=== PATIENT | male | born 1985 ===

== ENCOUNTER 2018-06-04 14:02 | Emergency (ER) | payer OTHER ==
[2018-06-04 14:13] VITALS: RESP 18
--- NOTE | 2018-06-04 15:21 | ED PDOC ---
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 Patient states approximately 5 months ago, he had a "fracture" and had a cast placed but has not followed up with a specialist. Patient states recently, he started walking on it more and has had more pain. He otherwise denies any new trauma, injury, weakness, numbness or tingling in his foot. He denies any other complaints. Past Medical History Reviewed: Historical Data, Nursing Documentation, Vital Signs Vital Signs: Last Vital Signs Temp 99.6 F 06/04/18 14:13 Pulse 95 H 06/04/18 14:13 Resp 18 06/04/18 14:13 BP 149/88 06/04/18 14:13 Pulse Ox 97 06/04/18 14:13 - Medical History PMH: No Chronic Diseases - Surgical History Surgical History: No Surg Hx - Family History Family History: States: No Known Family Hx - Home Medications Home Medications: Ambulatory Orders Medication Instructions Recorded Ibuprofen [Motrin Tab] 600 mg PO TID 5 Days #15 tab 06/04/18 - Allergies Allergies/Adverse Reactions: Allergies Allergy/AdvReac Type Severity Reaction Status Date / Time No Known Allergies Allergy Verified 06/04/18 14:16 Review of Systems ROS Statement: Except As Marked, All Systems Reviewed And Found Negative Musculoskeletal: Positive for: Foot Pain (left) Neurological: Negative for: Weakness, Numbness Physical Exam - Reviewed Nursing Documentation Reviewed: Yes Vital Signs Reviewed: Yes - Physical Exam Appears: Positive for: Non-toxic, No Acute Distress Head Exam: Positive for: ATRAUMATIC, NORMAL INSPECTION, NORMOCEPHALIC Skin: Positive for: Normal Color Cardiovascular/Chest: Positive for: Regular Rate, Rhythm Pulses-Dorsalis Pedis (L): 2+ Extremity: Positive for: Normal ROM (FROM left ankle), Tenderness (Mild tenderness over anterior ankle.), Capillary Refill (< 2 seconds; normal neurovascular sensations). Negative for: Pedal Edema, Calf Tenderness, Deformity, Swelling Neurologic/Psych: Positive for: Alert, Oriented. Negative for: Motor/Sensory Deficits - ECG O2 Sat by Pulse Oximetry: 97 (RA) Pulse Ox Interpretation: Normal - Radiology X-Ray: Interpreted by Me X-Ray Interpretation: Other (callus formation, healing old fx, no acute fx seen) Medical Decision Making Medical Decision Making: Time: 1520 Assessment: 33yo male with chronic left ankle pain s/p (?) fracture Plan: -- Motrin 600mg PO -- XR Left ankle 1641 XR FINDINGS: BONES: There is slight irregularity of the distal fibula as well as the posterior malleolus.. The possibility of underlying fracture cannot be excluded on this exam. JOINTS: Normal. No osteoarthritis. Ankle mortise maintained. Talar dome intact SOFT TISSUES: There appears to be minor soft tissue swelling over the lateral malleolus. Suspect small joint effusion as well. OTHER FINDINGS: None. IMPRESSION: Mild irregularity of the distal lateral margin of the fibula and posterior malleolus. Underlying fracture cannot be excluded on this study. Mild soft tissue swelling with small joint effusion. 1644 Consult to podiatry placed 1708 Podiatry resident at bedside with patient now. 1726 Podiatry resident spoke with attending who advised patient to follow up in his office. Patient was given surgical shoe and crutches, and is stable for discharge home. Scribe Attestation: Documented by Uzma Schaefer acting as a scribe for CLEOPATRA Valle. Provider Attestation: All medical record entries made by the Scribe were at my direction and personally dictated by me. I have reviewed the chart and agree that the record accurately reflects my personal performance of the history, physical exam, medical decision making, and the department course for this patient. I have also personally directed, reviewed, and agree with the discharge instructions and disposition. Disposition - Clinical Impression Clinical Impression: Ankle injury - Patient ED Disposition Is Patient to be Admitted: No Doctor Will See Patient In The: Office Counseled Patient/Family Regarding: Studies Performed, Diagnosis, Need For Followup, Rx Given - Disposition Referrals: Marcin Franco DPM [Staff Provider] - Disposition: Routine/Home Disposition Time: 17:31 Condition: STABLE Prescriptions: Ibuprofen [Motrin Tab] 600 mg PO TID 5 Days #15 tab Instructions: Ankle Sprain (DC) Forms: [facility] (French) Print Language: TURKISH
--- NOTE | 2018-06-04 16:46 | RAD ---
Date of service: 06/04/2018 PROCEDURE: Left Ankle Radiographs. HISTORY: Pain. COMPARISON: None available. FINDINGS: BONES: There is slight irregularity of the distal fibula as well as the posterior malleolus.. The possibility of underlying fracture cannot be excluded on this exam. JOINTS: Normal. No osteoarthritis. Ankle mortise maintained. Talar dome intact SOFT TISSUES: There appears to be minor soft tissue swelling over the lateral malleolus. Suspect small joint effusion as well. OTHER FINDINGS: None. IMPRESSION: Mild irregularity of the distal lateral margin of the fibula and posterior malleolus. Underlying fracture cannot be excluded on this study. Mild soft tissue swelling with small joint effusion.
--- NOTE | 2018-06-04 17:31 | CP.PCM.CON ---
History of Present Illness - History of Present Illness History of Present Illness: Podiatry consult note for Dr Franco, 33 y/o male with no significant PMHx presents to ER for evaluation of left ankle pain. Patient states approximately 5 months ago, he had a "fracture" and had a an air cast placed but has not followed up with a specialist as he moved from [place] to [place]. Patient states recently, he started walking on it more and has had more pain. He otherwise denies any new trauma, injury, weakn ess, numbness or tingling in his foot. He denies any other complaints. Patient denies F/N/V/SOB/CP. Review of Systems - Review of Systems All systems: reviewed and no additional remarkable complaints except Review of Systems: As per HPI Past Patient History - Past Social History Smoking Status: Never Smoked - PSYCHIATRIC Hx Substance Use: No - SURGICAL HISTORY Hx Surgeries: No - ANESTHESIA Hx Anesthesia: No Meds Home Medications: Home Medication List Medication Instructions Recorded Confirmed Type Ibuprofen [Motrin Tab] 600 mg PO TID 5 Days #15 tab 06/04/18 Rx Allergies/Adverse Reactions: Allergies Allergy/AdvReac Type Severity Reaction Status Date / Time No Known Allergies Allergy Verified 06/04/18 14:16 Physical Exam - Constitutional Appears: Well, Non-toxic, No Acute Distress - Head Exam Head Exam: ATRAUMATIC, NORMOCEPHALIC - Extremities Exam Additional comments: Left Lower Extremity Exam VASC: DP and PT 2/4, CFT less than 3 seconds X 5, no edema, no varicosities, TG WNL NEURO: epicritic and protective sensations intact DERM: no open lesions, no ecchymosis, no erythema, no clinical signs of infection ORTHO: pain with ankle range of motion, pain on palpation to the lateral anterior aspect of the ankle, no pain with any other ranges of motion MSK 5/5 - Neurological Exam Neurological exam: Alert, Oriented x3 - Psychiatric Exam Psychiatric exam: Normal Affect, Normal Mood Results - Vital Signs Recent Vital Signs: Last Vital Signs Temp 99.6 F 06/04/18 14:13 Pulse 95 H 06/04/18 14:13 Resp 18 06/04/18 14:13 BP 149/88 06/04/18 14:13 Pulse Ox 97 06/04/18 17:26 Assessment & Plan - Assessment and Plan (Free Text) Assessment: 33 y/o male patient seen and evaluated for old left fibular fracture Plan: Patient seen and evaluated Plan discussed with attending Dr. 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 Franco Thank you for the Podiatry consult - Date & Time Date: 06/05/18 Time: 14:49
[2018-06-04 17:52] VITALS: BP 138/84; PULSE 87; TEMP 98.7; O2SAT 100
== END 2018-06-04 17:51 | disposition home or self-care (01) ==
LOC: H.ER 14:02
DX: M25.572 Pain in left ankle and joints of left foot (principal)

== ENCOUNTER 2018-07-11 07:52 | Emergency (ER) | payer OTHER ==
[2018-07-11 07:58] VITALS: BMI 30.7
[2018-07-11] MEDS ORDERED: Sodium Chloride 0.9% 1,000 ML IV STA (08:18)
--- NOTE | 2018-07-11 08:21 | ED PDOC ---
HPI: Abdomen Time Seen by Provider: 07/11/18 08:10 Chief Complaint (Nursing): Abdominal Pain History Per: Patient Onset/Duration Of Symptoms: Days (2) Current Symptoms Are (Timing): Still Present Severity: Moderate Location Of Pain/Discomfort: Epigastric Quality Of Discomfort: Sharp Associated Symptoms: denies: Fever, Nausea, Vomiting, Diarrhea, Urinary Symptoms Exacerbating Factors: None Alleviating Factors: None Additional Complaint(s): Sharp epigastric pain x 2 days. Denies NVD. Denies fever. Has been taking Motrin 600 mg x 3 months for foot fx. Denies blood in stool. Past Medical History Vital Signs: Last Vital Signs Temp 98.2 F 07/11/18 07:58 Pulse 68 07/11/18 07:58 Resp 20 07/11/18 07:58 BP 138/89 07/11/18 07:58 Pulse Ox 100 07/11/18 07:58 - Medical History PMH: No Chronic Diseases - Family History Family History: States: Unknown Family Hx - Home Medications Home Medications: Ambulatory Orders Medication Instructions Recorded Ibuprofen [Motrin Tab] 600 mg PO TID 5 Days #15 tab 06/04/18 Famotidine [Pepcid] 20 mg PO Q12 #20 tab 07/11/18 - Allergies Allergies/Adverse Reactions: Allergies Allergy/AdvReac Type Severity Reaction Status Date / Time No Known Allergies Allergy Verified 07/11/18 08:07 Review of Systems ROS Statement: Except As Marked, All Systems Reviewed And Found Negative Cardiovascular: Negative for: Chest Pain Gastrointestinal: Positive for: Abdominal Pain Physical Exam - Reviewed Nursing Documentation Reviewed: Yes Vital Signs Reviewed: Yes - Physical Exam Appears: Positive for: Non-toxic, No Acute Distress Head Exam: Positive for: ATRAUMATIC, NORMAL INSPECTION, NORMOCEPHALIC Skin: Positive for: Normal Color, Warm, DRY Eye Exam: Positive for: EOMI, Normal appearance, PERRL ENT: Positive for: Normal ENT Inspection Neck: Positive for: Normal, Painless ROM Cardiovascular/Chest: Positive for: Regular Rate, Rhythm Respiratory: Positive for: CNT, Normal Breath Sounds Gastrointestinal/Abdominal: Positive for: Soft, Tenderness (Epigastric). Negative for: Guarding, Rebound Back: Positive for: Normal Inspection Extremity: Positive for: Normal ROM Neurologic/Psych: Positive for: Alert, Oriented - Laboratory Results Result Diagrams: 07/11/18 08:33 07/11/18 08:33 - ECG O2 Sat by Pulse Oximetry: 100 - Progress Re-evaluation Time: 10:23 Condition: Improved Medical Decision Making Medical Decision Making: Abd pain Chronic NSAID use gastritis, r/o PUD IVF, Pepcid Disposition - Clinical Impression Clinical Impression: Gastritis - Patient ED Disposition Is Patient to be Admitted: No Counseled Patient/Family Regarding: Studies Performed, Diagnosis, Need For Followup, Rx Given - Disposition Referrals: [facility] [Outside] Disposition: Routine/Home Disposition Time: 10:23 Condition: FAIR Additional Instructions: Para a dana el Ibuprofen Prescriptions: Famotidine [Pepcid] 20 mg PO Q12 #20 tab Instructions: Gastritis Forms: [facility] (Belizean) Print Language: KITTITIAN
[2018-07-11 08:41] LABS: BASO % 0.4 % (0.0-2.0); EOS % 0.2 % (0.0-4.0); HEMOGLOBIN 14.7 g/dL (12.0-18.0); LYMPH # 1.3 K/uL (1.0-4.3); LYMPH % 12.1 % (20.0-40.0); MEAN CELL VOLUME 88.8 fl (80.0-94.0); MEAN CORPUSCULAR HEMOGLOBIN 30.3 pg (27.0-31.0); MEAN CORPUSCULAR HGB CONC 34.1 g/dL (33.0-37.0); MEAN PLATELET VOLUME 7.8 fl (7.2-11.7); MONO # 0.4 K/uL (0.0-0.8); NEUT # 9.1 K/uL (1.8-7.0); NEUT % 83.3 % (50.0-75.0); RBC 4.84 Mil/uL (4.40-5.90); RED CELL DISTRIBUTION WIDTH 13.7 % (11.5-14.5)
[2018-07-11 09:12] LABS: ALB/GLOB RATIO 1.3 (1.0-2.1); ALBUMIN 4.2 g/dL (3.5-5.0); ALT/SGPT 58 U/L (21-72); AST/SGOT 39 U/L (17-59); BLOOD UREA NITROGEN 14 mg/dl (9-20); CALCIUM 9.7 mg/dL (8.4-10.2); GFR NON-AFRICAN AMERICAN > 60; LIPASE 58 U/L (23-300)
[2018-07-11 10:38] VITALS: BP 130/78; PULSE 71; RESP 18; TEMP 98.4; O2SAT 99
== END 2018-07-11 10:40 | disposition home or self-care (01) ==
LOC: H.ER 07:52
DX: K29.70 Gastritis, unspecified, without bleeding (principal)
CPT/HCPCS: 80053; 83690; 85025; 96361; 96374; 99284; J7030

== ENCOUNTER 2018-07-12 12:54 | Inpatient (IN) | payer MEDICAID, OTHER ==
[2018-07-12 12:54] VITALS: BMI 30.7
[2018-07-12] MEDS ORDERED: Sodium Chloride 0.9% 1,000 ML IV STA ×2 (14:27→16:49)
[2018-07-12] MEDS ORDERED: Morphine 4 MG/ML VIAL IV ONE ×2 (14:28→15:24)
[2018-07-12] MEDS ORDERED: Morphine 4 MG/ML VIAL ONE ×2 (14:36→15:40)
--- NOTE | 2018-07-12 14:39 | ED PDOC ---
HPI: Abdomen Time Seen by Provider: 07/12/18 13:48 Chief Complaint (Nursing): Abdominal Pain Chief Complaint (Provider): Abdominal pain History Per: Patient History/Exam Limitations: no limitations Onset/Duration Of Symptoms: Days Outside of [place] travel?: No Current Symptoms Are (Timing): Still Present Location Of Pain/Discomfort: RUQ, Periumbilical Quality Of Discomfort: "Pain" Additional History Per: Patient Additional Complaint(s): 33yo male, comes to ER reporting right upper quadrant abdominal pain with associated epigastric pain since last night. Patient states he was seen in this ER yesterday and did not have any imaging done, and was discharged home with pep shazia. Patient reports that he has been taking Motrin 600mg for the past 3 months due to left foot pain. He also reports a tactile fever last night, as well as nausea. otherwise, no vomiting, diarrhea, or bloody stools. No additional complaints. Past Medical History Reviewed: Historical Data, Nursing Documentation, Vital Signs Vital Signs: Last Vital Signs Temp 101.7 F H 07/12/18 13:14 Pulse 110 H 07/12/18 13:14 Resp 20 07/12/18 13:14 BP 127/90 07/12/18 13:14 Pulse Ox 97 07/12/18 13:14 - Medical History PMH: No Chronic Diseases - Surgical History Surgical History: No Surg Hx - Family History Family History: States: No Known Family Hx - Home Medications Home Medications: Ambulatory Orders Medication Instructions Recorded Famotidine [Pepcid] 20 mg PO Q12 #20 tab 07/11/18 RX: Ibuprofen [Motrin Tab] 600 mg PO TID PRN 07/12/18 - Allergies Allergies/Adverse Reactions: Allergies Allergy/AdvReac Type Severity Reaction Status Date / Time No Known Allergies Allergy Verified 07/11/18 08:07 Review of Systems ROS Statement: Except As Marked, All Systems Reviewed And Found Negative Constitutional: Positive for: Fever. Negative for: Chills Cardiovascular: Negative for: Chest Pain Gastrointestinal: Positive for: Nausea, Abdominal Pain. Negative for: Vomiting, Diarrhea Physical Exam - Reviewed Nursing Documentation Reviewed: Yes Vital Signs Reviewed: Yes - Physical Exam Appears: Positive for: Non-toxic, No Acute Distress Head Exam: Positive for: ATRAUMATIC, NORMAL INSPECTION, NORMOCEPHALIC Skin: Positive for: Normal Color Eye Exam: Positive for: Normal appearance Neck: Positive for: Supple Cardiovascular/Chest: Positive for: Regular Rate, Rhythm Respiratory: Positive for: Normal Breath Sounds Gastrointestinal/Abdominal: Positive for: Bowel Sounds, Soft, Tenderness (right upper quadrant and periumbilical tenderness; + Alonso's sign). Negative for: Mass, Distended, Guarding, Rebound Back: Positive for: Normal Inspection Extremity: Positive for: Normal ROM, Other (left foot in sherin wrap). Negative for: Pedal Edema Neurologic/Psych: Positive for: Alert, Oriented. Negative for: Motor/Sensory Deficits - Laboratory Results Result Diagrams: 07/15/18 05:40 07/15/18 05:40 - ECG O2 Sat by Pulse Oximetry: 97 (RA) Pulse Ox Interpretation: Normal Medical Decision Making Medical Decision Makinyo male with sudden onset abdominal pain, right upper quadrant tendereness rule out cholecystitis Plan: -- US Galbladder -- Labs -- Urinalysis -- Morphine 2mg IV -- Pepcid 20mg IV 1616 Labs reviewed, patient with elevated WBC level of 19. LFT and total bili elevated as well. Suspicion for cholecysititis, currently pending US results. 1637 US Abdomen FINDINGS: LIVER: Measures 18.4 cm in length. Normal echogenicity of the liver parenchyma. No mass. No intrahepatic bile duct dilatation. GALLBLADDER: Gallbladder is distended with the solitary gallstone at the neck with thickening of the gallbladder wall up to 5.4 mm. No pericholecystic fluid collection however cholecystitis is questioned sonographically and further clinical correlation is recommended. COMMON BILE DUCT: Measures 5.2 mm. No stones. No dilatation. PANCREAS: Extensive overlying bowel gas completely obscures the pancreas. RIGHT KIDNEY: Measures 10.6 cm in length. Normal echogenicity. No calculus, mass, or hydronephrosis. AORTA: Obscured by overlying bowel gas. IVC: Obscured by overlying bowel gas. OTHER FINDINGS: None. IMPRESSION: Gallbladder is mildly distended with significant mural thickening but no pericholecystic fluid collection. There is reported sonographic Alonso sign. Normal CBD caliber. Clinically correlate for likely cholecystitis. Overlying bowel gas obscures the pancreas, abdominal aorta and inferior vena cava, which are not evaluated. The remainder the examination is unremarkable. 1643 IV Zosyn ordered. Case discussed with Dr. Jasso surgery division engineer who is requesting MRCP and business services vice president to evaluate patient. Monge to be admitted under hospitalist, Dr. Riddle. pt agreeable to plan 5 pm potential source of sepsis/infection identified iv fluids nad supportive care initiated vbg ordered pending results vitals stable Scribe Attestation: Documented by Uzma Schaefer acting as a scribe for Nishant Starr MD Provider Attestation: All medical record entries made by the Scribe were at my direction and personally dictated by me. I have reviewed the chart and agree that the record accurately reflects my personal performance of the history, physical exam, medical decision making, and the department course for this patient. I have also personally directed, reviewed, and agree with the discharge instructions and disposition. Disposition - Clinical Impression Clinical Impression: Abdominal pain, Cholecystitis - Patient ED Disposition Is Patient to be Admitted: Yes - Disposition Disposition: Transfer of Care Disposition Time: 16:43 Condition: STABLE
[2018-07-12 15:01] LABS: BASO % 0.2 % (0.0-2.0); EOS % 0.1 % (0.0-4.0); HEMOGLOBIN 15.2 g/dL (12.0-18.0); LYMPH # 1.3 K/uL (1.0-4.3); LYMPH % 6.8 % (20.0-40.0); MEAN CELL VOLUME 88.2 fl (80.0-94.0); MEAN CORPUSCULAR HEMOGLOBIN 29.3 pg (27.0-31.0); MEAN CORPUSCULAR HGB CONC 33.3 g/dL (33.0-37.0); MEAN PLATELET VOLUME 7.7 fl (7.2-11.7); MONO # 1.8 K/uL (0.0-0.8); MONO % 9.2 % (0.0-10.0); NEUT # 16.2 K/uL (1.8-7.0); NEUT % 83.7 % (50.0-75.0); PLATELET COUNT 310 K/uL (130-400); RBC 5.17 Mil/uL (4.40-5.90); RED CELL DISTRIBUTION WIDTH 14.1 % (11.5-14.5); WHITE BLOOD COUNT 19.3 K/uL (4.8-10.8)
[2018-07-12 15:18] LABS: ALB/GLOB RATIO 1.2 (1.0-2.1); ALBUMIN 4.5 g/dL (3.5-5.0); ALT/SGPT 84 U/L (21-72); AST/SGOT 75 U/L (17-59); BLOOD UREA NITROGEN 9 mg/dl (9-20); CALCIUM 9.8 mg/dL (8.4-10.2); GFR NON-AFRICAN AMERICAN > 60; LIPASE 19 U/L (23-300)
[2018-07-12 16:33] LABS: URINE BACTERIA RARE (<OCC); URINE BILIRUBIN NEGATIVE (NEGATIVE); URINE BLOOD NEGATIVE (NEGATIVE); URINE CLARITY SLIGHTY-CLOUDY (Clear); URINE COLOR YELLOW (YELLOW); URINE GLUCOSE (UA) NEG (NEGATIVE); URINE LEUKOCYTE ESTERASE NEG Leu/uL (Negative); URINE PROTEIN NEGATIVE (NEGATIVE); URINE UROBILINOGEN 0.2-1.0 mg/dL (0.2-1.0)
--- NOTE | 2018-07-12 16:35 | US ---
Date of service: 07/12/2018 HISTORY: abdominal pain RUQ COMPARISON: None. TECHNIQUE: Sonographic evaluation of the right upper quadrant of the abdomen. FINDINGS: LIVER: Measures 18.4 cm in length. Normal echogenicity of the liver parenchyma. No mass. No intrahepatic bile duct dilatation. GALLBLADDER: Gallbladder is distended with the solitary gallstone at the neck with thickening of the gallbladder wall up to 5.4 mm. No pericholecystic fluid collection however cholecystitis is questioned sonographically and further clinical correlation is recommended. COMMON BILE DUCT: Measures 5.2 mm. No stones. No dilatation. PANCREAS: Extensive overlying bowel gas completely obscures the pancreas. RIGHT KIDNEY: Measures 10.6 cm in length. Normal echogenicity. No calculus, mass, or hydronephrosis. AORTA: Obscured by overlying bowel gas. IVC: Obscured by overlying bowel gas. OTHER FINDINGS: None . IMPRESSION: Gallbladder is mildly distended with significant mural thickening but no pericholecystic fluid collection. There is reported sonographic Alonso sign. Normal CBD caliber. Clinically correlate for likely cholecystitis. Overlying bowel gas obscures the pancreas, abdominal aorta and inferior vena cava, which are not evaluated. The remainder the examination is unremarkable.
[2018-07-12] MEDS ORDERED: Piperacillin/Tazobact 4.5 GM in Sodium Chloride 0.9% 100 ML IVPB STA (16:45)
[2018-07-12 17:24] LABS: VENOUS BLOOD GAS BASE EXCESS 1.7 mmol/L (0.0-2.0); VENOUS BLOOD GAS PCO2 38 mmHg (40-60); VENOUS BLOOD GAS PO2 57 mm/Hg (30-55); VENOUS BLOOD PH 7.44 (7.32-7.43)
[2018-07-12] MEDS ORDERED: Piperacillin/Tazobact 3.375 gm Inj IVPB ONE (17:29)
--- NOTE | 2018-07-12 17:29 | CP.PCM.CON ---
<Garett Conley - Last Filed: 07/12/18 19:37> History of Present Illness - History of Present Illness History of Present Illness: Surgery Consult Note- Dr. Jasso Reason for Consult: Acute Cholecystitis 33M w/ no significant pmhx presents to [facility] ED for the 2nd time in 24 hours with severe sharp stabbing RUQ abdominal pain that started yesterday. patient has never experienced pain like this in the past. Of note patient came to the hospital yesterday and was discharged home w/ pepcid with some relief. Pain got significantly worse after eating earlier today and returned. ED work up showed elevation in leukocytosis, t.bili, and liver enzymes. Subsequently surgery was consulted. Denies fevers, chills, chest pain, shortness of breath, nausea, vomiting, diarrhea, changes in urinary habits. US: shows 1cm stone in neck of GB, CBD 5mm. 12 pt ROS conducted, negative otherwise stated above PMH: Fractured left foot 6 months ago PSH: denies ALL: NKDA SocialHx: denies tobacco, etoh, recreational drug use FH: non-contributory Review of Systems - Review of Systems All systems: reviewed and no additional remarkable complaints except - Constitutional Constitutional: As Per HPI Past Patient History - Past Social History Smoking Status: Never Smoked - PSYCHIATRIC Hx Substance Use: No - SURGICAL HISTORY Hx Surgeries: No - ANESTHESIA Hx Anesthesia: No Meds Allergies/Adverse Reactions: Allergies Allergy/AdvReac Type Severity Reaction Status Date / Time No Known Allergies Allergy Verified 07/11/18 08:07 - Medications Medications: Current Medications Piperacillin Sod/Tazobactam (Sod 4.5 gm/ Sodium Chloride) 100 mls @ 100 mls/hr IVPB STAT STA; Protocol Stop: 07/12/18 17:44 Sodium Chloride (Sodium Chloride 0.9%) 1,000 mls @ 999 mls/hr IV .Q1H1M STA Stop: 07/12/18 17:49 Physical Exam - Constitutional Appears: Non-toxic, No Acute Distress - Head Exam Head Exam: ATRAUMATIC - Eye Exam Eye Exam: EOMI. absent: Scleral icterus - ENT Exam ENT Exam: Mucous Membranes Moist - Respiratory Exam Respiratory Exam: NORMAL BREATHING PATTERN. absent: Accessory Muscle Use, Respiratory Distress - Cardiovascular Exam Cardiovascular Exam: REGULAR RHYTHM. absent: Bradycardia, Tachycardia - GI/Abdominal Exam GI & Abdominal Exam: Soft, Tenderness (Tenderness to shallow palpation in RUQ. ). absent: Distended, Firm, Guarding, Hernia, Rigid - Extremities Exam Extremities exam: Negative for: calf tenderness Additional comments: LLE wrapped w/ KWASI bandage. due to fx 6mo ago - Neurological Exam Neurological exam: Alert, Oriented x3 - Psychiatric Exam Psychiatric exam: Normal Affect - Skin Skin Exam: Intact, Warm Results - Vital Signs Recent Vital Signs: Last Vital Signs Temp 99.5 F 07/12/18 16:26 Pulse 80 07/12/18 16:26 Resp 18 07/12/18 16:26 BP 124/73 07/12/18 16:26 Pulse Ox 97 07/12/18 17:14 - Labs Result Diagrams: 07/12/18 14:50 07/12/18 14:50 Labs: Laboratory Results - last 24 hr 07/12/18 07/12/18 07/12/18 14:50 14:50 16:23 WBC 19.3 H D RBC 5.17 Hgb 15.2 Hct 45.5 MCV 88.2 MCH 29.3 MCHC 33.3 RDW 14.1 Plt Count 310 MPV 7.7 Neut % (Auto) 83.7 H Lymph % (Auto) 6.8 L [place] % (Auto) 9.2 Eos % (Auto) 0.1 Baso % (Auto) 0.2 Neut # (Auto) 16.2 H Lymph # (Auto) 1.3 Major # (Auto) 1.8 H Eos # (Auto) 0.0 Baso # (Auto) 0.0 pO2 VBG pH VBG pCO2 VBG HCO3 VBG Total CO2 VBG O2 Sat (Calc) VBG Base Excess VBG Potassium Glucose Lactate FiO2 Sodium 138 Potassium 4.0 Chloride 91 L Carbon Dioxide 27 Anion Gap 24 H BUN 9 Creatinine 0.9 Est GFR ( Amer) > 60 Est GFR (Non-Af Amer) > 60 Random Glucose 125 H Calcium 9.8 Total Bilirubin 1.9 H AST 75 H D ALT 84 H D Alkaline Phosphatase 118 Total Protein 8.3 H Albumin 4.5 Globulin 3.7 Albumin/Globulin Ratio 1.2 Lipase 19 L Venous Blood Potassium Urine Color Yellow Urine Clarity Slighty-cloudy Urine pH 7.0 Ur Specific [place] 1.006 Urine Protein Negative Urine Glucose (UA) Neg Urine Ketones Negative Urine Blood Negative Urine Nitrate Negative Urine Bilirubin Negative Urine Urobilinogen 0.2-1.0 Ur Leukocyte Esterase Neg Urine RBC (Auto) 1 Urine Microscopic WBC < 1 Urine Bacteria Rare 07/12/18 16:57 WBC RBC Hgb Hct MCV MCH MCHC RDW Plt Count MPV Neut % (Auto) Lymph % (Auto) Major % (Auto) Eos % (Auto) Baso % (Auto) Neut # (Auto) Lymph # (Auto) Major # (Auto) Eos # (Auto) Baso # (Auto) pO2 57 H VBG pH 7.44 H VBG pCO2 38 L VBG HCO3 26.0 VBG Total CO2 27.0 VBG O2 Sat (Calc) 95.4 H VBG Base Excess 1.7 VBG Potassium 3.4 L Glucose 130 H Lactate 1.4 FiO2 21.0 Sodium 133.0 Potassium Chloride 103.0 Carbon Dioxide Anion Gap BUN Creatinine Est GFR ( Amer) Est GFR (Non-Af Amer) Random Glucose Calcium Total Bilirubin AST ALT Alkaline Phosphatase Total Protein Albumin Globulin Albumin/Globulin Ratio Lipase Venous Blood Potassium 3.4 L Urine Color Urine Clarity Urine pH Ur Specific [place] Urine Protein Urine Glucose (UA) Urine Ketones Urine Blood Urine Nitrate Urine Bilirubin Urine Urobilinogen Ur Leukocyte Esterase Urine RBC (Auto) Urine Microscopic WBC Urine Bacteria Assessment & Plan - Assessment and Plan (Free Text) Assessment: 33M w/ Acute Cholecystitis w/ Cholangitis US: 1cm stone in neck of GB, trace pericholecystic fluid. GBW: 5mm, CBD: 5mm Plan: - MRCP reviewed; final read pending. (concern for multiple stones in CBD) - will need GI and ERCP prior to surgery - Aggressive IVF/Abx - NPO - Anti-emetic, analgesia PRN - serial Abd exams - d/w surgical attending PGY2 <Miguel Jasso - Last Filed: 07/12/18 19:57> History of Present Illness - History of Present Illness History of Present Illness: Patient was seen and examined at the bedside. Agree with resident's note above. Meds - Medications Medications: Current Medications Lactated Ringer's (Lactated Ringer's) 1,000 mls @ 9,999 mls/hr IV .Q6M RUSTAM Stop: 07/12/18 19:56 Lactated Ringer's (Lactated Ringer's) 1,000 mls @ 125 mls/hr IV .Q8H RUSTAM Morphine Sulfate (Morphine) 2 mg IVP Q4 PRN PRN Reason: Pain, moderate (4-7) Physical Exam - ENT Exam ENT Exam: Mucous Membranes Dry - GI/Abdominal Exam Additional comments: soft, tender in the RUQ, ND, BS+, no rebound, no guarding, + Alonso's sign Results - Vital Signs Recent Vital Signs: Last Vital Signs Temp 99.0 F 07/12/18 18:10 Pulse 88 07/12/18 18:10 Resp 20 07/12/18 18:10 BP 125/73 07/12/18 18:10 Pulse Ox 100 07/12/18 17:44 - Labs Result Diagrams: 07/12/18 14:50 07/12/18 14:50 Labs: Laboratory Results - last 24 hr 07/12/18 07/12/18 07/12/18 14:50 14:50 16:23 WBC 19.3 H D RBC 5.17 Hgb 15.2 Hct 45.5 MCV 88.2 MCH 29.3 MCHC 33.3 RDW 14.1 Plt Count 310 MPV 7.7 Neut % (Auto) 83.7 H Lymph % (Auto) 6.8 L [place] % (Auto) 9.2 Eos % (Auto) 0.1 Baso % (Auto) 0.2 Neut # (Auto) 16.2 H Lymph # (Auto) 1.3 Major # (Auto) 1.8 H Eos # (Auto) 0.0 Baso # (Auto) 0.0 Neutrophils % (Manual) 86 H Lymphocytes % (Manual) 7 L Monocytes % (Manual) 7 Platelet Estimate Normal RBC Morphology Normal pO2 VBG pH VBG pCO2 VBG HCO3 VBG Total CO2 VBG O2 Sat (Calc) VBG Base Excess VBG Potassium Glucose Lactate FiO2 Sodium 138 Potassium 4.0 Chloride 91 L Carbon Dioxide 27 Anion Gap 24 H BUN 9 Creatinine 0.9 Est GFR ( Amer) > 60 Est GFR (Non-Af Amer) > 60 Random Glucose 125 H Calcium 9.8 Total Bilirubin 1.9 H AST 75 H D ALT 84 H D Alkaline Phosphatase 118 Total Protein 8.3 H Albumin 4.5 Globulin 3.7 Albumin/Globulin Ratio 1.2 Lipase 19 L Venous Blood Potassium Urine Color Yellow Urine Clarity Slighty-cloudy Urine pH 7.0 Ur Specific [place] 1.006 Urine Protein Negative Urine Glucose (UA) Neg Urine Ketones Negative Urine Blood Negative Urine Nitrate Negative Urine Bilirubin Negative Urine Urobilinogen 0.2-1.0 Ur Leukocyte Esterase Neg Urine RBC (Auto) 1 Urine Microscopic WBC < 1 Urine Bacteria Rare 07/12/18 16:57 WBC RBC Hgb Hct MCV MCH MCHC RDW Plt Count MPV Neut % (Auto) Lymph % (Auto) Major % (Auto) Eos % (Auto) Baso % (Auto) Neut # (Auto) Lymph # (Auto) Major # (Auto) Eos # (Auto) Baso # (Auto) Neutrophils % (Manual) Lymphocytes % (Manual) Monocytes % (Manual) Platelet Estimate RBC Morphology pO2 57 H VBG pH 7.44 H VBG pCO2 38 L VBG HCO3 26.0 VBG Total CO2 27.0 VBG O2 Sat (Calc) 95.4 H VBG Base Excess 1.7 VBG Potassium 3.4 L Glucose 130 H Lactate 1.4 FiO2 21.0 Sodium 133.0 Potassium Chloride 103.0 Carbon Dioxide Anion Gap BUN Creatinine Est GFR ( Amer) Est GFR (Non-Af Amer) Random Glucose Calcium Total Bilirubin AST ALT Alkaline Phosphatase Total Protein Albumin Globulin Albumin/Globulin Ratio Lipase Venous Blood Potassium 3.4 L Urine Color Urine Clarity Urine pH Ur Specific [place] Urine Protein Urine Glucose (UA) Urine Ketones Urine Blood Urine Nitrate Urine Bilirubin Urine Urobilinogen Ur Leukocyte Esterase Urine RBC (Auto) Urine Microscopic WBC Urine Bacteria - Imaging and Cardiology US - abdomen Status: Image reviewed by me, Report reviewed by me Assessment & Plan - Assessment and Plan (Free Text) Assessment: 33 y.o. male with cholecystitis and elevated LFTs Plan: - Awaiting MRCP results - Keep NPO - 1L bolus - IV fluids - Pain control - Zosyn - GI consultation - Repeat labs in am - Will follow - Patient was d/w Dr. Riddle
[2018-07-12 17:30] LABS: LYMPHOCYTE 7 % (20-50); MONOCYTE 7 % (0-10); NEUTROPHIL 86 % (42-75); TOTAL CELLS COUNTED 100
[2018-07-12 17:31] LABS: PLATELET ESTIMATE NORMAL (NORMAL)
--- NOTE | 2018-07-12 18:49 | CP.PCM.HP ---
<Kylie Casanova - Last Filed: 07/13/18 02:28> History of Present Illness - History of Present Illness History of Present Illness: 33 yo M with no significant chronic medical issues, presented to ED today with sharp, stabbing RUQ pain that started yesterday; denies experiencing pain like this before. He states pain got worse after eating earlier today. Upon evaluation, was found to have positive Alonso's sign on exam and abd US showed mildly distended gallbladder with significant mural thickening but no pericholecystic fluid collection and sonographic Alonso sign. Denies headache, blurred vision, dizziness, chest pain, shortness of breath, nausea, vomiting, diarrhea, constipation, dysuria. PMD: [place] [facility]; had 1 visit in 06/2017 Past Med Hx: fractured left foot 6 months ago but has not had follow up until this month Past Surg Hx: lipoma Social hx: denies tobacco, alcohol, drug use Family hx: non contributory, parents healthy Allergies: NKDA In ED: Vitals: T 101.7; BP 127/90, HR 110, RR 20, O2 sat 97 on room air Labs: significant for elevated WBC (19.3), elevated T bili 1.9, elevated LFT (AST 75, ALT 84) Lactate 1.4 UA negative Blood and urine cultures collected and sent Abdominal U/s: IMPRESSION: Gallbladder is mildly distended with significant mural thickening but no pericholecystic fluid collection. There is reported sonographic Alonso sign. Normal CBD caliber. Clinically correlate for likely cholecystitis. Overlying bowel gas obscures the pancreas, abdominal aorta and inferior vena cava, which are not evaluated. The remainder the examination is unremarkable. Received: Pepcid 20 mg 2L NS bolus Zosyn 4.5 mg Tylenol 650 mg Morphine for pain control Surgery consulted to rob pt - requested MRCP; as per surg resident note, there is a 1cm stone in neck of GB, CBD 5mm. Present on Admission - Present on Admission Any Indicators Present on Admission: No Review of Systems - Review of Systems All systems: reviewed and no additional remarkable complaints except Review of Systems: as per hpi Past Patient History - Past Social History Smoking Status: Never Smoked Alcohol: None Drugs: Denies - CARDIAC Hx Cardiac Disorders: No - PULMONARY Hx Respiratory Disorders: No - NEUROLOGICAL Hx Neurological Disorder: No - HEENT Hx HEENT Problems: No - RENAL Hx Chronic Kidney Disease: No - ENDOCRINE/METABOLIC Hx Endocrine Disorders: No - HEMATOLOGICAL/ONCOLOGICAL Hx Blood Disorders: No - INTEGUMENTARY Hx Dermatological Problems: No - MUSCULOSKELETAL/RHEUMATOLOGICAL Hx Musculoskeletal Disorders: No - GASTROINTESTINAL Hx Gastrointestinal Disorders: No - GENITOURINARY/GYNECOLOGICAL Hx Genitourinary Disorders: No - PSYCHIATRIC Hx Psychophysiologic Disorder: No Hx Substance Use: No - SURGICAL HISTORY Hx Surgeries: Yes Other/Comment: lipoma removal - ANESTHESIA Hx Anesthesia: No Meds Allergies/Adverse Reactions: Allergies Allergy/AdvReac Type Severity Reaction Status Date / Time No Known Allergies Allergy Verified 07/11/18 08:07 Physical Exam - Constitutional Appears: Non-toxic, No Acute Distress - Head Exam Head Exam: NORMAL INSPECTION - Eye Exam Eye Exam: Normal appearance - ENT Exam ENT Exam: Mucous Membranes Moist - Respiratory Exam Respiratory Exam: Clear to Auscultation Bilateral, NORMAL BREATHING PATTERN. absent: Respiratory Distress - Cardiovascular Exam Cardiovascular Exam: REGULAR RHYTHM, +S1, +S2 - GI/Abdominal Exam GI & Abdominal Exam: Normal Bowel Sounds, Soft, Tenderness (RUQ) - Extremities Exam Extremities exam: Positive for: normal inspection. Negative for: calf te nderness, pedal edema - Neurological Exam Neurological exam: Alert, Oriented x3 - Psychiatric Exam Psychiatric exam: Normal Affect, Normal Mood - Skin Skin Exam: Dry, Warm Results - Vital Signs Recent Vital Signs: Last Vital Signs Temp 99.0 F 07/12/18 18:10 Pulse 88 07/12/18 18:10 Resp 20 07/12/18 18:10 BP 125/73 07/12/18 18:10 Pulse Ox 100 07/12/18 17:44 - Labs Result Diagrams: 07/12/18 14:50 07/12/18 14:50 Labs: Laboratory Results - last 24 hr 07/12/18 07/12/18 07/12/18 14:50 14:50 16:23 WBC 19.3 H D RBC 5.17 Hgb 15.2 Hct 45.5 MCV 88.2 MCH 29.3 MCHC 33.3 RDW 14.1 Plt Count 310 MPV 7.7 Neut % (Auto) 83.7 H Lymph % (Auto) 6.8 L [place] % (Auto) 9.2 Eos % (Auto) 0.1 Baso % (Auto) 0.2 Neut # (Auto) 16.2 H Lymph # (Auto) 1.3 [place] # (Auto) 1.8 H Eos # (Auto) 0.0 Baso # (Auto) 0.0 Neutrophils % (Manual) 86 H Lymphocytes % (Manual) 7 L Monocytes % (Manual) 7 Platelet Estimate Normal RBC Morphology Normal pO2 VBG pH VBG pCO2 VBG HCO3 VBG Total CO2 VBG O2 Sat (Calc) VBG Base Excess VBG Potassium Glucose Lactate FiO2 Sodium 138 Potassium 4.0 Chloride 91 L Carbon Dioxide 27 Anion Gap 24 H BUN 9 Creatinine 0.9 Est GFR ( Amer) > 60 Est GFR (Non-Af Amer) > 60 Random Glucose 125 H Calcium 9.8 Total Bilirubin 1.9 H AST 75 H D ALT 84 H D Alkaline Phosphatase 118 Total Protein 8.3 H Albumin 4.5 Globulin 3.7 Albumin/Globulin Ratio 1.2 Lipase 19 L Venous Blood Potassium Urine Color Yellow Urine Clarity Slighty-cloudy Urine pH 7.0 Ur Specific [place] 1.006 Urine Protein Negative Urine Glucose (UA) Neg Urine Ketones Negative Urine Blood Negative Urine Nitrate Negative Urine Bilirubin Negative Urine Urobilinogen 0.2-1.0 Ur Leukocyte Esterase Neg Urine RBC (Auto) 1 Urine Microscopic WBC < 1 Urine Bacteria Rare 07/12/18 16:57 WBC RBC Hgb Hct MCV MCH MCHC RDW Plt Count MPV Neut % (Auto) Lymph % (Auto) [place] % (Auto) Eos % (Auto) Baso % (Auto) Neut # (Auto) Lymph # (Auto) [place] # (Auto) Eos # (Auto) Baso # (Auto) Neutrophils % (Manual) Lymphocytes % (Manual) Monocytes % (Manual) Platelet Estimate RBC Morphology pO2 57 H VBG pH 7.44 H VBG pCO2 38 L VBG HCO3 26.0 VBG Total CO2 27.0 VBG O2 Sat (Calc) 95.4 H VBG Base Excess 1.7 VBG Potassium 3.4 L Glucose 130 H Lactate 1.4 FiO2 21.0 Sodium 133.0 Potassium Chloride 103.0 Carbon Dioxide Anion Gap BUN Creatinine Est GFR ( Amer) Est GFR (Non-Af Amer) Random Glucose Calcium Total Bilirubin AST ALT Alkaline Phosphatase Total Protein Albumin Globulin Albumin/Globulin Ratio Lipase Venous Blood Potassium 3.4 L Urine Color Urine Clarity Urine pH Ur Specific [place] Urine Protein Urine Glucose (UA) Urine Ketones Urine Blood Urine Nitrate Urine Bilirubin Urine Urobilinogen Ur Leukocyte Esterase Urine RBC (Auto) Urine Microscopic WBC Urine Bacteria Assessment & Plan - Assessment and Plan (Free Text) Assessment: 33 yo with no known chronic medical problems, admitted for likely acute cholecystitis. Meets sepsis criteria (elevated WBC, febrile, tachycardic), source suspected cholecystitis. Plan: Sepsis, secondary to acute cholecystitis - Evidence of gallbladder thickening seen on US abdomen - MRCP done; follow up official read - s/p 1 dose zosyn in ED; continue zosyn 3.375 mg Q6hrs - s/p fluid resuscitation; continue LR @ 125ml/hr - F/u blood and urine cultures - AM CBC, CMP - Pain control, 2mg morphine IVP Q4 PRN - Surg consult - Dr. Jasso, recommendations appreciated - GI consult - Dr. Sol, recommendations pending/appreciated Diet - NPO DVT prophylaxis - SCDs for now Case discussed w/ Dr. Riddle. <Eddi Riddle D - Last Filed: 07/13/18 10:33> Results - Vital Signs Recent Vital Signs: Last Vital Signs Temp 101.7 F H 07/13/18 08:11 Pulse 93 H 07/13/18 08:11 Resp 20 07/13/18 08:11 BP 118/75 07/13/18 08:11 Pulse Ox 93 L 07/13/18 08:11 - Labs Result Diagrams: 07/13/18 05:40 07/13/18 05:40 Labs: Laboratory Results - last 24 hr 07/12/18 07/12/18 07/12/18 14:50 14:50 16:23 WBC 19.3 H D RBC 5.17 Hgb 15.2 Hct 45.5 MCV 88.2 MCH 29.3 MCHC 33.3 RDW 14.1 Plt Count 310 MPV 7.7 Neut % (Auto) 83.7 H Lymph % (Auto) 6.8 L [place] % (Auto) 9.2 Eos % (Auto) 0.1 Baso % (Auto) 0.2 Neut # (Auto) 16.2 H Lymph # (Auto) 1.3 [place] # (Auto) 1.8 H Eos # (Auto) 0.0 Baso # (Auto) 0.0 Neutrophils % (Manual) 86 H Lymphocytes % (Manual) 7 L Monocytes % (Manual) 7 Platelet Estimate Normal RBC Morphology Normal PT INR APTT pO2 VBG pH VBG pCO2 VBG HCO3 VBG Total CO2 VBG O2 Sat (Calc) VBG Base Excess VBG Potassium Glucose Lactate FiO2 Sodium 138 Potassium 4.0 Chloride 91 L Carbon Dioxide 27 Anion Gap 24 H BUN 9 Creatinine 0.9 Est GFR ( Amer) > 60 Est GFR (Non-Af Amer) > 60 Random Glucose 125 H Calcium 9.8 Total Bilirubin 1.9 H Direct Bilirubin AST 75 H D ALT 84 H D Alkaline Phosphatase 118 Total Protein 8.3 H Albumin 4.5 Globulin 3.7 Albumin/Globulin Ratio 1.2 Lipase 19 L Venous Blood Potassium Urine Color Yellow Urine Clarity Slighty-cloudy Urine pH 7.0 Ur Specific [place] 1.006 Urine Protein Negative Urine Glucose (UA) Neg Urine Ketones Negative Urine Blood Negative Urine Nitrate Negative Urine Bilirubin Negative Urine Urobilinogen 0.2-1.0 Ur Leukocyte Esterase Neg Urine RBC (Auto) 1 Urine Microscopic WBC < 1 Urine Bacteria Rare 07/12/18 07/12/18 07/13/18 16:57 20:55 05:40 WBC 19.5 H RBC 4.55 Hgb 13.6 Hct 40.5 MCV 89.0 MCH 29.9 MCHC 33.6 RDW 13.7 Plt Count 245 MPV 7.9 Neut % (Auto) 85.0 H Lymph % (Auto) 6.5 L [place] % (Auto) 8.0 Eos % (Auto) 0.2 Baso % (Auto) 0.3 Neut # (Auto) 16.6 H Lymph # (Auto) 1.3 [place] # (Auto) 1.6 H Eos # (Auto) 0.0 Baso # (Auto) 0.1 Neutrophils % (Manual) Lymphocytes % (Manual) Monocytes % (Manual) Platelet Estimate RBC Morphology PT 15.3 H INR 1.3 APTT 31.3 pO2 57 H VBG pH 7.44 H VBG pCO2 38 L VBG HCO3 26.0 VBG Total CO2 27.0 VBG O2 Sat (Calc) 95.4 H VBG Base Excess 1.7 VBG Potassium 3.4 L Glucose 130 H Lactate 1.4 FiO2 21.0 Sodium 133.0 Potassium Chloride 103.0 Carbon Dioxide Anion Gap BUN Creatinine Est GFR ( Amer) Est GFR (Non-Af Amer) Random Glucose Calcium Total Bilirubin Direct Bilirubin AST ALT Alkaline Phosphatase Total Protein Albumin Globulin Albumin/Globulin Ratio Lipase Venous Blood Potassium 3.4 L Urine Color Urine Clarity Urine pH Ur Specific [place] Urine Protein Urine Glucose (UA) Urine Ketones Urine Blood Urine Nitrate Urine Bilirubin Urine Urobilinogen Ur Leukocyte Esterase Urine RBC (Auto) Urine Microscopic WBC Urine Bacteria 07/13/18 07/13/18 05:40 08:23 WBC RBC Hgb Hct MCV MCH MCHC RDW Plt Count MPV Neut % (Auto) Lymph % (Auto) [place] % (Auto) Eos % (Auto) Baso % (Auto) Neut # (Auto) Lymph # (Auto) [place] # (Auto) Eos # (Auto) Baso # (Auto) Neutrophils % (Manual) Lymphocytes % (Manual) Monocytes % (Manual) Platelet Estimate RBC Morphology PT INR APTT pO2 VBG pH VBG pCO2 VBG HCO3 VBG Total CO2 VBG O2 Sat (Calc) VBG Base Excess VBG Potassium Glucose Lactate FiO2 Sodium 137 Potassium 3.5 L Chloride 98 Carbon Dioxide 27 Anion Gap 16 BUN 10 Creatinine 0.9 Est GFR ( Amer) > 60 Est GFR (Non-Af Amer) > 60 Random Glucose 111 H Calcium 9.0 Total Bilirubin 3.5 H Direct Bilirubin 0.7 H AST 77 H ALT 120 H D Alkaline Phosphatase 115 Total Protein 6.7 Albumin 3.4 L D Globulin 3.2 Albumin/Globulin Ratio 1.1 Lipase 16 L Venous Blood Potassium Urine Color Urine Clarity Urine pH Ur Specific [place] Urine Protein Urine Glucose (UA) Urine Ketones Urine Blood Urine Nitrate Urine Bilirubin Urine Urobilinogen Ur Leukocyte Esterase Urine RBC (Auto) Urine Microscopic WBC Urine Bacteria Attending/Attestation - Attestation I have personally seen and examined this patient.: Yes I have fully participated in the care of the patient.: Yes I have reviewed all pertinent clinical information: Yes Notes (Text): 07/13/18 10:33 Patient seen and examined with resident. Case discussed and agreed with assessment and plan of management.
[2018-07-12] MEDS: Lactated Ringer's 1,000 ML IV SCH ×5 (19:51→22:49)
--- NOTE | 2018-07-12 20:08 | CARD ---
APPROVED REPORT Date of service: 07/12/2018 EKG Measurement Heart [id number] <Conclusion> Normal sinus rhythm Normal ECG
[2018-07-12 21:32] LABS: INR 1.3; PROTHROMBIN TIME 15.3 Seconds (9.8-13.1)
[2018-07-12 21:35] LABS: PARTIAL THROMBOPLASTIN TIME 31.3 Seconds (25.6-37.1)
[2018-07-12] MEDS ORDERED: Piperacillin/Tazobact 3.375 GM in Sodium Chloride 0.9% 100 ML IVPB SCH (22:00)
[2018-07-13] MEDS: Piperacillin/Tazobact 3.375 GM in Sodium Chloride 0.9% 100 ML IVPB SCH ×4 (00:30→19:45)
[2018-07-13] MEDS: Lactated Ringer's 1,000 ML IV SCH ×3 (04:12→20:00)
[2018-07-13 06:26] LABS: BASO # 0.1 K/uL (0.0-0.2); BASO % 0.3 % (0.0-2.0); EOS % 0.2 % (0.0-4.0); HEMOGLOBIN 13.6 g/dL (12.0-18.0); LYMPH # 1.3 K/uL (1.0-4.3); LYMPH % 6.5 % (20.0-40.0); MEAN CORPUSCULAR HEMOGLOBIN 29.9 pg (27.0-31.0); MEAN CORPUSCULAR HGB CONC 33.6 g/dL (33.0-37.0); MEAN PLATELET VOLUME 7.9 fl (7.2-11.7); MONO # 1.6 K/uL (0.0-0.8); NEUT # 16.6 K/uL (1.8-7.0); NRBC % 0.1 % (0.0-0.0); RBC 4.55 Mil/uL (4.40-5.90); RED CELL DISTRIBUTION WIDTH 13.7 % (11.5-14.5); WHITE BLOOD COUNT 19.5 K/uL (4.8-10.8)
[2018-07-13 06:39] LABS: ALB/GLOB RATIO 1.1 (1.0-2.1); ALBUMIN 3.4 g/dL (3.5-5.0); ALT/SGPT 120 U/L (21-72); AST/SGOT 77 U/L (17-59); BILIRUBIN,DIRECT 0.7 mg/ml (0.0-0.4); BLOOD UREA NITROGEN 10 mg/dl (9-20); GFR NON-AFRICAN AMERICAN > 60
[2018-07-13] MEDS ORDERED: Influenza Vaccine 60 mcg/0.5 mL SYR (4YR UP) IM ONE (08:00)
[2018-07-13] MEDS ORDERED: Pneumococcal 23-Valent Vaccine IM ONE (08:00)
--- NOTE | 2018-07-13 08:17 | CP.PCM.PN ---
<Kota Mcfarland - Last Filed: 07/13/18 08:15> Subjective - Date & Time of Evaluation Date of Evaluation: 07/13/18 Time of Evaluation: 06:30 - Subjective Subjective: Patient seen and examined. No acute events over night. Patient reports worsening epigastric pain which is radiating towards RUQ and back. Denies nausea/vomiting, fever/chills. Objective - Vital Signs/Intake and Output Vital Signs (last 24 hours): Temp Pulse Resp BP Pulse Ox 101.7 F H 93 H 20 118/75 93 L 07/13/18 08:11 07/13/18 08:11 07/13/18 08:11 07/13/18 08:11 07/13/18 08:11 - Medications Medications: Current Medications Lactated Ringer's (Lactated Ringer's) 1,000 mls @ 125 mls/hr IV .Q8H [facility] Last Admin: 07/13/18 04:12 Dose: Not Given Piperacillin Sod/Tazobactam (Sod 3.375 gm/ Sodium Chloride) 100 mls @ 100 mls/hr IVPB Q6H [facility]; Protocol Last Admin: 07/13/18 06:10 Dose: 100 mls/hr Morphine Sulfate (Morphine) 2 mg IVP Q4 PRN PRN Reason: Pain, moderate (4-7) - Labs Labs: 07/13/18 05:40 07/13/18 05:40 PT 15.3 Seconds (9.8-13.1) H 07/12/18 20:55 INR 1.3 07/12/18 20:55 APTT 31.3 Seconds (25.6-37.1) 07/12/18 20:55 - Constitutional Appears: No Acute Distress - Head Exam Head Exam: NORMOCEPHALIC - Eye Exam Eye Exam: EOMI, Normal appearance - ENT Exam ENT Exam: Mucous Membranes Dry Additional comments: mild sublingual icterus - Respiratory Exam Respiratory Exam: NORMAL BREATHING PATTERN - Cardiovascular Exam Cardiovascular Exam: +S1, +S2 - GI/Abdominal Exam GI & Abdominal Exam: Soft, Tenderness. absent: Firm, Rigid, Rebound Additional comments: RUQ/epigastric tenderness - Neurological Exam Neurological Exam: Alert, Awake, Oriented x3 - Psychiatric Exam Psychiatric exam: Normal Mood - Skin Skin Exam: Dry, Intact, Warm Assessment and Plan - Assessment and Plan (Free Text) Assessment: 33 y.o. male with cholecystitis Plan: -F/u lipase level - F/u MRCP results - Keep NPO - IV fluids - Pain control - ABx - F/u GI recs - Repeat labs in am - Will follow - Further recs per Dr. Truman Prince PGY3 <Davon Laughlin - Last Filed: 07/13/18 09:14> Objective - Vital Signs/Intake and Output Vital Signs (last 24 hours): Temp Pulse Resp BP Pulse Ox 101.7 F H 93 H 20 118/75 93 L 07/13/18 08:11 07/13/18 08:11 07/13/18 08:11 07/13/18 08:11 07/13/18 08:11 - Medications Medications: Current Medications Lactated Ringer's (Lactated Ringer's) 1,000 mls @ 125 mls/hr IV .Q8H [facility] Last Admin: 07/13/18 04:12 Dose: Not Given Piperacillin Sod/Tazobactam (Sod 3.375 gm/ Sodium Chloride) 100 mls @ 100 mls/hr IVPB Q6H [facility]; Protocol Last Admin: 07/13/18 06:10 Dose: 100 mls/hr Azithromycin 500 mg/ Sodium (Chloride) 250 mls @ 250 mls/hr IVPB DAILY [facility]; Protocol Morphine Sulfate (Morphine) 2 mg IVP Q4 PRN PRN Reason: Pain, moderate (4-7) - Labs Labs: 07/13/18 05:40 07/13/18 05:40 PT 15.3 Seconds (9.8-13.1) H 07/12/18 20:55 INR 1.3 07/12/18 20:55 APTT 31.3 Seconds (25.6-37.1) 07/12/18 20:55 Assessment and Plan - Assessment and Plan (Free Text) Plan: seen at bedside, agree with resident note pt continous to report RUQ pain worst with movement. Denies any nausea or vomiting. Febrile Tmax 101.7 Tbili today increased to 3.5 gen: awake, alert, NAD, +scleral icterus abd: soft, ND, +murphys 33yo M with acute cholecystitis, choledocholithiasis concern for cholangitis -pain control -NPO -IV hydration -trend LFTs -continue ABX -monitor urine output -MRCP reviewed with radiologist - +distal cbd stone -f/u GI for ERCP -lap jasmina pending ERCP
[2018-07-13] MEDS ORDERED: Sodium Chloride 3% for Inhalation 4 ML VIAL.NEB IH PRN (08:33)
--- NOTE | 2018-07-13 09:34 | CP.PCM.PN ---
Subjective - Date & Time of Evaluation Date of Evaluation: 07/13/18 Time of Evaluation: 09:27 - Subjective Subjective: Patient was seen and examined this morning, febrile (101.7F) laying in bed awake, grimacing & complaining of RUQ pain. He denies any chills, chest pain or shortness of breath. Objective - Vital Signs/Intake and Output Vital Signs (last 24 hours): Temp Pulse Resp BP Pulse Ox 101.7 F H 93 H 20 118/75 93 L 07/13/18 08:11 07/13/18 08:11 07/13/18 08:11 07/13/18 08:11 07/13/18 08:11 - Medications Medications: Current Medications Lactated Ringer's (Lactated Ringer's) 1,000 mls @ 125 mls/hr IV .Q8H [facility] Last Admin: 07/13/18 04:12 Dose: Not Given Piperacillin Sod/Tazobactam (Sod 3.375 gm/ Sodium Chloride) 100 mls @ 100 mls/hr IVPB Q6H [facility]; Protocol Last Admin: 07/13/18 06:10 Dose: 100 mls/hr Azithromycin 500 mg/ Sodium (Chloride) 250 mls @ 250 mls/hr IVPB DAILY [facility]; Protocol Morphine Sulfate (Morphine) 2 mg IVP Q4 PRN PRN Reason: Pain, moderate (4-7) Last Admin: 07/13/18 09:16 Dose: 2 mg - Labs Labs: 07/13/18 05:40 07/13/18 05:40 PT 15.3 Seconds (9.8-13.1) H 07/12/18 20:55 INR 1.3 07/12/18 20:55 APTT 31.3 Seconds (25.6-37.1) 07/12/18 20:55 - Head Exam Head Exam: ATRAUMATIC, NORMAL INSPECTION - Eye Exam Eye Exam: EOMI. absent: Scleral icterus - ENT Exam ENT Exam: Mucous Membranes Moist - Respiratory Exam Respiratory Exam: absent: Rhonchi, Wheezes - Cardiovascular Exam Cardiovascular Exam: +S1, +S2 Additional comments: borderline tachycardia - GI/Abdominal Exam GI & Abdominal Exam: Soft, Normal Bowel Sounds Additional comments: RUQ tenderness - Back Exam Back Exam: absent: CVA tenderness (L) - Neurological Exam Neurological Exam: Alert, Awake, Oriented x3 - Psychiatric Exam Psychiatric exam: Normal Affect, Normal Mood - Skin Skin Exam: Dry, Intact Assessment and Plan - Assessment and Plan (Free Text) Assessment: 33 y/o M with no chronic med hx admitted for evaluation of RUQ pain with ultrasound findings suggestive of cholecystitis. 1. Cholecystitis (Acute) -Dr. Jasso's recommendations appreciated. -Dr. Sol, GI, consulted. -Ultrasound: Gallbladder is mildly distended with significant mural thickening but no pericholecystic fluid & sonographic Alonos sign. -MRCP shows 2.6cm calculus impacted at gallbladder neck with cholecystitis pattern suggested. As 5.7mm calculus likely obstructs distal CBD which is dilated diffusely to 7mm. No intrahepatic biliary dilatation. (Read by Dr. Chino)Discordant from prelim report reported by [facility] 07/12. -FU ERCP. -Lipase 16 today, was 19 yesterday. - Continue NPO with LR @ 125ml/hr. - Continue pain control with morphine 2mg IBP Q4 PRN. - Continue zosyn. 2. Bibasilar infiltrates (reported on initial MRCP report). -FU official report of CXR. -FU sputum & blood cultures. -Zithromax 500mg IV QD which was started this morning.
[2018-07-13] MEDS: Azithromycin 500 MG in Sodium Chloride 0.9% 250 ML IVPB SCH (10:45)
--- NOTE | 2018-07-13 11:21 | MRI ---
Date of service: 07/12/2018 PROCEDURE: Magnetic Resonance Cholangiopancreatography HISTORY: COMPARISON: None available. TECHNIQUE: Multiplanar, multisequence MR images of the abdomen were obtained, including heavily T2 weighted MRCP images of the biliary system. Rotating maximum intensity projection images of the biliary system were generated. FINDINGS: MRCP: The common bile duct is dilated to 7 mm diffusely, with a 5.7 mm calculus for a potentially obstructing the distal CBD. Normal intrahepatic biliary duct pattern including common hepatic duct which measures only 3.2 mm caliber. In addition, gallbladder is prominently distended with a large calculus lodged at the neck measuring 2.6 x 2.0 cm. Limited pericolic reaction fluid is seen surrounding the body as well as abutting the hepatic flexure and inferior margins right lobe liver. Consider cholecystitis. LIVER: Unremarkable. GALLBLADDER: As above in MRCP section. SPLEEN: Unremarkable. PANCREAS: Unremarkable. ADRENALS: Unremarkable. KIDNEYS: Unremarkable. AORTA: No aneurysm. ASCITES: None. OTHER FINDINGS: None. IMPRESSION: Appears a a 2.6 cm calculus appears impacted at the gallbladder neck with cholecystitis pattern suggested involving the gallbladder. Clinically correlate further. As 5.7 mm calculus likely obstructs distal CBD which is dilated diffusely to 7.0 mm throughout. No intrahepatic biliary dilatation however. Further clinical correlation is advised. Discordant from preliminary report provided by [facility] 07/12/2018, 7:41 p.m. regarding choledocholithiasis. Findings discussed with Dr. Medrano with written down and read back verification 07/13/2018 11 a.m. as well as earlier in the morning with the surgery department.
--- NOTE | 2018-07-13 14:14 | RAD ---
Date of service: 07/13/2018 HISTORY: bibasilar infiltrate noted on MRCP COMPARISON: No prior. TECHNIQUE: Chest PA and lateral FINDINGS: LUNGS: Linear atelectasis or fibrosis noted at the left lung base. None is seen at the right. No definite infiltrate bilaterally. PLEURA: Trace left pleural effusion not excluded. None is seen at the right. No pneumothorax bilaterally. CARDIOVASCULAR: No aortic atherosclerotic calcification present. Normal cardiac size. No pulmonary vascular congestion. OSSEOUS STRUCTURES: No significant abnormalities. VISUALIZED UPPER ABDOMEN: Normal. OTHER FINDINGS: None. IMPRESSION: Trace left pleural effusion question with linear atelectasis or fibrosis noted at the left base.
[2018-07-14] MEDS: Piperacillin/Tazobact 3.375 GM in Sodium Chloride 0.9% 100 ML IVPB SCH ×4 (00:18→17:47)
[2018-07-14] MEDS: Lactated Ringer's 1,000 ML IV SCH ×5 (04:00→21:12)
--- NOTE | 2018-07-14 04:00 | CON ---
DATE: 07/13/2018 REFERRING DOCTOR: Eddi Riddle MD REASON FOR CONSULTATION: Cholecystitis. HISTORY OF PRESENT ILLNESS: This is a 33-year-old male with history of , comes in with right pain and discomfort with fever and chills, all since are still there, but better. GI was called because of ERCP with possible CBD stone. The patient has cholelithiasis which is being treated with antibiotics. His fevers are present, but the pain is improving but still there, still nauseous, but is asking for food. The patient is lying in bed comfortable, in no apparent distress. PAST MEDICAL HISTORY: As above. SURGICAL HISTORY: As above. MEDICATIONS: Have been reviewed. REVIEW OF SYSTEMS: All other systems have been reviewed and negative apart from the HPI. PHYSICAL EXAMINATION: VITAL SIGNS: Here in the hospital, grossly unremarkable. GENERAL: This is a pleasant middle-aged man, lying in bed comfortably, in no apparent distress. HEENT: Head, normocephalic and atraumatic. Eyes, pupils are equally reactive to light bilaterally. No conjunctival pallor or icterus. NECK: Supple. Normal range of motion. No lymphadenopathy appreciated. LUNGS: Coarse breath sounds bilaterally. HEART: S1 and S2. Regular rate and rhythm. No murmurs appreciated. ABDOMEN: Soft and nontender. Bowel sounds present. Some discomfort in the epigastric region. No rebound. No guarding. RECTAL: Deferred. EXTREMITIES: Pulses present bilaterally. SKIN: Warm, dry, and intact. NEUROLOGIC: A and O x3. LABORATORY DATA: Labs and radiology have been reviewed. WBC is 19.5 and stable, hemoglobin is 13.6 and stable, INR 1.3. Total bili is 3.5 but that is primarily indirect, alk phos is normal. AST and ALT 77 and 120. Ultrasound shows cholecystitis as well as MRCP with a questionable small 2-mm filling defect in the distal CBD. ASSESSMENT AND PLAN: This is a 33-year-old man with acute cholecystitis and incidental common bile duct stone. Surgical consult appreciated. We will likely perform endoscopic retrograde cholangiopancreatography prior to the laparoscopic cholecystectomy. Antibiotics and by mouth pain control. Thank you for the consult. Olu Sol MD/ PhD cc: Eddi Riddle MD
[2018-07-14 06:16] LABS: BASO % 0.2 % (0.0-2.0); EOS # 0.1 K/uL (0.0-0.7); EOS % 0.6 % (0.0-4.0); HEMOGLOBIN 12.8 g/dL (12.0-18.0); LYMPH # 1.5 K/uL (1.0-4.3); LYMPH % 7.7 % (20.0-40.0); MEAN CELL VOLUME 89.6 fl (80.0-94.0); MEAN CORPUSCULAR HEMOGLOBIN 29.5 pg (27.0-31.0); MEAN CORPUSCULAR HGB CONC 32.9 g/dL (33.0-37.0); MEAN PLATELET VOLUME 7.7 fl (7.2-11.7); MONO # 1.3 K/uL (0.0-0.8); MONO % 6.7 % (0.0-10.0); NEUT # 16.5 K/uL (1.8-7.0); NEUT % 84.8 % (50.0-75.0); NRBC % 0.1 % (0.0-0.0); RBC 4.33 Mil/uL (4.40-5.90); RED CELL DISTRIBUTION WIDTH 14.2 % (11.5-14.5); WHITE BLOOD COUNT 19.5 K/uL (4.8-10.8)
[2018-07-14 06:23] LABS: BLOOD UREA NITROGEN 13 mg/dl (9-20); GFR NON-AFRICAN AMERICAN > 60
[2018-07-14] MEDS ORDERED: Potassium Chloride 20 mEq 100 ML IVPB ONE (07:06)
[2018-07-14 07:42] LABS: ALBUMIN 3.4 g/dL (3.5-5.0); ALT/SGPT 67 U/L (21-72); AST/SGOT 32 U/L (17-59); BILIRUBIN,DIRECT 0.5 mg/ml (0.0-0.4)
[2018-07-14] MEDS ORDERED: Morphine 4 MG/ML VIAL IVP PRN (07:45)
--- NOTE | 2018-07-14 08:39 | CP.PCM.PN ---
<MerchantGarett - Last Filed: 07/14/18 08:36> Subjective - Date & Time of Evaluation Date of Evaluation: 07/14/18 Time of Evaluation: 08:37 - Subjective Subjective: Surgery Progress note Patient seen and examined at bedside. Continues to have RUQ abdominal pain, and mid-epigastric pain to palpation. + nausea, denies vomiting. + OOB and ambulation. denies: fevers, chills, chest pain, shortness of breath Objective - Vital Signs/Intake and Output Vital Signs (last 24 hours): Temp Pulse Resp BP Pulse Ox 99.3 F 87 20 114/74 96 07/14/18 08:14 07/14/18 08:14 07/14/18 08:14 07/14/18 08:14 07/14/18 08:14 - Medications Medications: Current Medications Lactated Ringer's (Lactated Ringer's) 1,000 mls @ 125 mls/hr IV .Q8H [facility] Last Admin: 07/14/18 05:30 Dose: 125 mls/hr Piperacillin Sod/Tazobactam (Sod 3.375 gm/ Sodium Chloride) 100 mls @ 100 mls/hr IVPB Q6H [facility]; Protocol Last Admin: 07/14/18 06:21 Dose: 100 mls/hr Azithromycin 500 mg/ Sodium (Chloride) 250 mls @ 250 mls/hr IVPB DAILY [facility]; Protocol Last Admin: 07/13/18 10:45 Dose: 250 mls/hr Potassium Chloride (Potassium Chloride 20 Meq/100 Ml) 100 mls @ 50 mls/hr IVPB ONCE ONE Stop: 07/14/18 09:05 Indomethacin (Indocin Suppository) 100 mg [place] ONCE ONE Stop: 07/14/18 12:01 Morphine Sulfate (Morphine) 2 mg IVP Q4 PRN PRN Reason: Pain, moderate (4-7) Last Admin: 07/14/18 08:01 Dose: 2 mg - Labs Labs: 07/14/18 05:45 07/14/18 05:45 PT 15.3 Seconds (9.8-13.1) H 07/12/18 20:55 INR 1.3 07/12/18 20:55 APTT 31.3 Seconds (25.6-37.1) 07/12/18 20:55 - Constitutional Appears: Non-toxic, No Acute Distress - Head Exam Head Exam: ATRAUMATIC - Eye Exam Eye Exam: EOMI, Scleral icterus - ENT Exam ENT Exam: Mucous Membranes Moist - Respiratory Exam Respiratory Exam: NORMAL BREATHING PATTERN. absent: Accessory Muscle Use, Respiratory Distress - Cardiovascular Exam Cardiovascular Exam: REGULAR RHYTHM. absent: Bradycardia, Tachycardia - GI/Abdominal Exam GI & Abdominal Exam: Soft, Tenderness (tenderness to palpation in RUQ and mid- epigastrum). absent: Distended, Firm, Guarding, Rigid - Neurological Exam Neurological Exam: Alert, Awake, Oriented x3 - Psychiatric Exam Psychiatric exam: Normal Affect - Skin Skin Exam: Intact, Warm Assessment and Plan - Assessment and Plan (Free Text) Assessment: 33M w/ acute cholecystitis and choledocholithiasis Plan: - Aggressive IVF hydration - IV abx - NPO - plan for ERCP w/ GI - surgery to follow after MRCP - f/u daily labs - further recs per Surgical attending PGY2 <Miguel Jasso - Last Filed: 07/14/18 12:05> Subjective - Date & Time of Evaluation Time of Evaluation: 11:30 - Subjective Subjective: Patient was seen and examined at the bedside. Agree with resident's note above. Objective - Vital Signs/Intake and Output Vital Signs (last 24 hours): Temp Pulse Resp BP Pulse Ox 99.3 F 87 20 114/74 96 07/14/18 08:14 07/14/18 08:14 07/14/18 08:14 07/14/18 08:14 07/14/18 08:14 - Medications Medications: Current Medications Lactated Ringer's (Lactated Ringer's) 1,000 mls @ 125 mls/hr IV .Q8H [facility] Last Admin: 07/14/18 05:30 Dose: 125 mls/hr Piperacillin Sod/Tazobactam (Sod 3.375 gm/ Sodium Chloride) 100 mls @ 100 mls/hr IVPB Q6H [facility]; Protocol Last Admin: 07/14/18 06:21 Dose: 100 mls/hr Azithromycin 500 mg/ Sodium (Chloride) 250 mls @ 250 mls/hr IVPB DAILY [facility]; Protocol Last Admin: 07/14/18 09:27 Dose: 250 mls/hr Morphine Sulfate (Morphine) 2 mg IVP Q4 PRN PRN Reason: Pain, moderate (4-7) Last Admin: 07/14/18 08:01 Dose: 2 mg - Labs Labs: 07/14/18 05:45 07/14/18 05:45 PT 15.3 Seconds (9.8-13.1) H 07/12/18 20:55 INR 1.3 07/12/18 20:55 APTT 31.3 Seconds (25.6-37.1) 07/12/18 20:55 Assessment and Plan - Assessment and Plan (Free Text) Plan: - Will need cholecystectomy after ERCP and once LFTs improve
[2018-07-14] MEDS: Azithromycin 500 MG in Sodium Chloride 0.9% 250 ML IVPB SCH (09:27)
[2018-07-14] MEDS ORDERED: Glucagon Recombinant 1 mg Inj ONE (10:15)
[2018-07-14] MEDS ORDERED: Indomethacin 50 MG Suppository PR ONE ×3 (10:15→12:55)
[2018-07-14] MEDS ORDERED: Iohexol 240 (50 ml) ONE ×2 (10:15→12:34)
--- NOTE | 2018-07-14 10:47 | CP.PCM.PN ---
Subjective - Date & Time of Evaluation Date of Evaluation: 07/14/18 Time of Evaluation: 10:36 - Subjective Subjective: Patient seen and examined this morning at bedside. Early this morning at about 12:06am he spiked a fever of 100.9F. Repeat temperature at about 8am was 99.3F. Patient reports his RUQ pain is minimal today. He denies any chills, chest pain or shortness of breath. Objective - Vital Signs/Intake and Output Vital Signs (last 24 hours): Temp Pulse Resp BP Pulse Ox 99.3 F 87 20 114/74 96 07/14/18 08:14 07/14/18 08:14 07/14/18 08:14 07/14/18 08:14 07/14/18 08:14 - Medications Medications: Current Medications Lactated Ringer's (Lactated Ringer's) 1,000 mls @ 125 mls/hr IV .Q8H [facility] Last Admin: 07/14/18 05:30 Dose: 125 mls/hr Piperacillin Sod/Tazobactam (Sod 3.375 gm/ Sodium Chloride) 100 mls @ 100 mls/hr IVPB Q6H [facility]; Protocol Last Admin: 07/14/18 06:21 Dose: 100 mls/hr Azithromycin 500 mg/ Sodium (Chloride) 250 mls @ 250 mls/hr IVPB DAILY [facility]; Protocol Last Admin: 07/14/18 09:27 Dose: 250 mls/hr Indomethacin (Indocin Suppository) 100 mg [place] ONCE ONE Stop: 07/14/18 12:01 Morphine Sulfate (Morphine) 2 mg IVP Q4 PRN PRN Reason: Pain, moderate (4-7) Last Admin: 07/14/18 08:01 Dose: 2 mg - Labs Labs: 07/14/18 05:45 07/14/18 05:45 PT 15.3 Seconds (9.8-13.1) H 07/12/18 20:55 INR 1.3 07/12/18 20:55 APTT 31.3 Seconds (25.6-37.1) 07/12/18 20:55 - Constitutional Appears: Non-toxic - Head Exam Head Exam: ATRAUMATIC - Eye Exam Eye Exam: EOMI. absent: Scleral icterus - ENT Exam ENT Exam: Mucous Membranes Moist - Respiratory Exam Respiratory Exam: absent: Rhonchi, Wheezes, Respiratory Distress - Cardiovascular Exam Cardiovascular Exam: REGULAR RHYTHM, +S1, +S2 - GI/Abdominal Exam GI & Abdominal Exam: Soft, Normal Bowel Sounds. absent: Guarding, Rigid Additional comments: RUQ tenderness - Extremities Exam Extremities Exam: absent: Calf Tenderness - Neurological Exam Neurological Exam: Alert, CN II-XII Intact, Oriented x3 - Psychiatric Exam Psychiatric exam: Normal Affect, Normal Mood - Skin Skin Exam: Dry, Intact Assessment and Plan - Assessment and Plan (Free Text) Assessment: 33 y/o M with no significant medical hx admitted for acute cholecystitis & choledocholithiasis. 1. Cholecystitis & choledocholithiasis (Acute) -Dr. Jasso's recommendations appreciated. -Dr. Sol' recommendations appreciated. -FU ERCP. -WBC continues to remain elevated at 19.5 with total bilirubin decreased to 2.5 today from 3.5, direct bilirubin decreased to 0.5 from 0.7 yesterday, and ALT/A ST wnl today, 32/67. -Lipase was 16 yesterday, and 19 on admission. - Continue NPO with LR @ 125ml/hr. - Continue pain control with morphine 2mg IBP Q4 PRN. - Continue zosyn. -Ultrasound: Gallbladder is mildly distended with significant mural thickening but no pericholecystic fluid & sonographic Alonso sign. -MRCP shows 2.6cm calculus impacted at gallbladder neck with cholecystitis pattern suggested. As 5.7mm calculus likely obstructs distal CBD which is dilated diffusely to 7mm. No intrahepatic biliary dilatation. (Read by Dr. Chino)Discordant from prelim report reported by [facility] 07/12. 2. Bibasilar infiltrates (reported on initial MRCP report). -CXR showed trace left pleural effusion with questionable linear atelectasis or fibrosis at left base as per Dr. Chino. -Blood cultures were negative. -Sputum culture uncollected. -Zithromax 500mg IV QD (day #2).
[2018-07-14] MEDS ORDERED: Lactated Ringer's 500 ML IV ONE ×2 (12:41→13:30)
[2018-07-14] MEDS ORDERED: Propofol 10 mg/ml Inj (20 ML) ONE ×2 (12:45→13:18)
[2018-07-14] MEDS ORDERED: HYDROmorphone 0.5 mg/0.5 ml ISec IVP PRN (14:11)
--- NOTE | 2018-07-14 17:12 | RAD ---
Date of service: 07/14/2018 PROCEDURE: Intraoperative fluoroscopy for ERCP HISTORY: cbd stone COMPARISON: Not available TECHNIQUE: Intraoperative fluoroscopy was provided for an ERCP examination. Total time of fluoroscopy was 593.0 sec. Cumulative dose was 180.10 mGy FINDINGS: Multiple fluoroscopic spot films are submitted. These demonstrate retrograde contrast injection into the biliary tree. No gross filling defect appreciated. Small common duct calculus demonstrated on MRCP examination of 07/12/2018 is not appreciated on these fluoroscopic spot images. Please see report of ERCP from gastroenterology. IMPRESSION: Fluoroscopy provided.
[2018-07-14] MEDS: metroNIDAZOLE 500mg/100ml NS 100 ML IVPB SCH (18:35)
[2018-07-15] MEDS: Piperacillin/Tazobact 3.375 GM in Sodium Chloride 0.9% 100 ML IVPB SCH ×4 (00:35→18:33)
[2018-07-15] MEDS: metroNIDAZOLE 500mg/100ml NS 100 ML IVPB SCH ×3 (01:27→16:47)
[2018-07-15 06:23] LABS: BASO % 0.2 % (0.0-2.0); EOS # 0.3 K/uL (0.0-0.7); EOS % 3.7 % (0.0-4.0); HEMOGLOBIN 12.2 g/dL (12.0-18.0); LYMPH # 1.3 K/uL (1.0-4.3); LYMPH % 15.8 % (20.0-40.0); MEAN CORPUSCULAR HEMOGLOBIN 29.5 pg (27.0-31.0); MEAN CORPUSCULAR HGB CONC 32.8 g/dL (33.0-37.0); MEAN PLATELET VOLUME 7.7 fl (7.2-11.7); MONO # 0.8 K/uL (0.0-0.8); MONO % 9.3 % (0.0-10.0); NEUT # 5.8 K/uL (1.8-7.0); RBC 4.14 Mil/uL (4.40-5.90); RED CELL DISTRIBUTION WIDTH 13.9 % (11.5-14.5); WHITE BLOOD COUNT 8.2 K/uL (4.8-10.8)
[2018-07-15] MEDS: Lactated Ringer's 1,000 ML IV SCH ×2 (06:24→12:24)
[2018-07-15 06:51] LABS: ALT/SGPT 71 U/L (21-72); AST/SGOT 57 U/L (17-59); BLOOD UREA NITROGEN 12 mg/dl (9-20); CALCIUM 8.6 mg/dL (8.4-10.2); GFR NON-AFRICAN AMERICAN > 60
--- NOTE | 2018-07-15 07:28 | CP.PCM.PN ---
<Tawanna Guardado - Last Filed: 07/15/18 08:48> Subjective - Date & Time of Evaluation Date of Evaluation: 07/15/18 Time of Evaluation: 06:30 - Subjective Subjective: General surgery progress note for Dr. Jasso Pt seen and examined this AM. No adverse event this AM. Patient states pain is improved, tolerated clear liquids, no nausea, vomiting or fevers. Objective - Vital Signs/Intake and Output Vital Signs (last 24 hours): Temp Pulse Resp BP Pulse Ox 98.0 F 65 18 102/66 97 07/14/18 23:43 07/14/18 23:43 07/14/18 23:43 07/14/18 23:43 07/14/18 23:43 - Medications Medications: Current Medications Lactated Ringer's (Lactated Ringer's) 1,000 mls @ 125 mls/hr IV .Q8H [facility] Last Admin: 07/15/18 06:24 Dose: 125 mls/hr Piperacillin Sod/Tazobactam (Sod 3.375 gm/ Sodium Chloride) 100 mls @ 100 mls/hr IVPB Q6H [facility]; Protocol Last Admin: 07/15/18 06:22 Dose: 100 mls/hr Metronidazole (Flagyl 500mg/100ml Ns) 100 mls @ 100 mls/hr IVPB Q8 [facility]; Protocol Last Admin: 07/15/18 01:27 Dose: 100 mls/hr Morphine Sulfate (Morphine) 2 mg IVP Q4 PRN PRN Reason: Pain, moderate (4-7) Last Admin: 07/14/18 08:01 Dose: 2 mg - Labs Labs: 07/15/18 05:40 07/15/18 05:40 PT 15.3 Seconds (9.8-13.1) H 07/12/18 20:55 INR 1.3 07/12/18 20:55 APTT 31.3 Seconds (25.6-37.1) 07/12/18 20:55 - Constitutional Appears: Well, Non-toxic, No Acute Distress - Head Exam Head Exam: ATRAUMATIC, NORMOCEPHALIC - Eye Exam Eye Exam: Normal appearance. absent: Conjunctival injection, Scleral icterus - ENT Exam ENT Exam: Mucous Membranes Moist, Normal Oropharynx - Respiratory Exam Respiratory Exam: NORMAL BREATHING PATTERN. absent: Accessory Muscle Use, Respiratory Distress - Cardiovascular Exam Cardiovascular Exam: RRR - GI/Abdominal Exam GI & Abdominal Exam: Soft, Tenderness (RUQ moderate tenderness). absent: Distended, Rebound - Extremities Exam Extremities Exam: absent: Calf Tenderness, Pedal Edema, Tenderness - Neurological Exam Neurological Exam: Alert, Awake, Oriented x3 - Psychiatric Exam Psychiatric exam: Normal Affect, Normal Mood - Skin Skin Exam: Dry, Intact, Normal Color, Warm Assessment and Plan - Assessment and Plan (Free Text) Assessment: 33M with choledocholithiasis and cholecystitis, s/p ERCP with common bile duct stone removal yesterday with sphincterotomy Plan: Trend CBC and CMP--bilirubin increased to 4.1 from 2.5 yesterday--likely d/t ERCP. Continue CLD--monitor tolerance IVF PRN pain and nausea medication IV antibiotics Will plan for laparoscopic cholecystectomy once LFT's have normalized Discussed with Dr. Jasso, further recs per him Tawanna Guardado, PGY2 <Miguel Jasso - Last Filed: 07/15/18 11:19> Subjective - Date & Time of Evaluation Time of Evaluation: 10:40 - Subjective Subjective: Patient was seen and examined at the bedside. Agree with resident's note above. Objective - Vital Signs/Intake and Output Vital Signs (last 24 hours): Temp Pulse Resp BP Pulse Ox 98 F 65 18 99/61 L 97 07/15/18 09:00 07/15/18 09:00 07/15/18 09:00 07/15/18 09:00 07/15/18 10:26 - Medications Medications: Current Medications Lactated Ringer's (Lactated Ringer's) 1,000 mls @ 125 mls/hr IV .Q8H [facility] Last Admin: 07/15/18 06:24 Dose: 125 mls/hr Piperacillin Sod/Tazobactam (Sod 3.375 gm/ Sodium Chloride) 100 mls @ 100 mls/hr IVPB Q6H [facility]; Protocol Last Admin: 07/15/18 06:22 Dose: 100 mls/hr Metronidazole (Flagyl 500mg/100ml Ns) 100 mls @ 100 mls/hr IVPB Q8 [facility]; Protocol Last Admin: 07/15/18 09:13 Dose: 100 mls/hr Morphine Sulfate (Morphine) 2 mg IVP Q4 PRN PRN Reason: Pain, moderate (4-7) Last Admin: 07/14/18 08:01 Dose: 2 mg - Labs Labs: 07/15/18 05:40 07/15/18 05:40 PT 15.3 Seconds (9.8-13.1) H 07/12/18 20:55 INR 1.3 07/12/18 20:55 APTT 31.3 Seconds (25.6-37.1) 07/12/18 20:55 - GI/Abdominal Exam Additional comments: soft, mildly tender in the RUQ, ND, BS+, no rebound, no guarding Assessment and Plan - Assessment and Plan (Free Text) Plan: - Start regular diet - Monitor LFTs - Continue antibiotics - pain control - Will need cholecystectomy once LFTs improve - Will follow
--- NOTE | 2018-07-15 09:15 | CP.PCM.PN ---
Subjective - Date & Time of Evaluation Date of Evaluation: 07/15/18 Time of Evaluation: 09:15 - Subjective Subjective: no overnight events Objective - Vital Signs/Intake and Output Vital Signs (last 24 hours): Temp Pulse Resp BP Pulse Ox 98.0 F 65 18 102/66 97 07/14/18 23:43 07/14/18 23:43 07/14/18 23:43 07/14/18 23:43 07/14/18 23:43 - Medications Medications: Current Medications Lactated Ringer's (Lactated Ringer's) 1,000 mls @ 125 mls/hr IV .Q8H [facility] Last Admin: 07/15/18 06:24 Dose: 125 mls/hr Piperacillin Sod/Tazobactam (Sod 3.375 gm/ Sodium Chloride) 100 mls @ 100 mls/hr IVPB Q6H [facility]; Protocol Last Admin: 07/15/18 06:22 Dose: 100 mls/hr Metronidazole (Flagyl 500mg/100ml Ns) 100 mls @ 100 mls/hr IVPB Q8 [facility]; Protocol Last Admin: 07/15/18 01:27 Dose: 100 mls/hr Morphine Sulfate (Morphine) 2 mg IVP Q4 PRN PRN Reason: Pain, moderate (4-7) Last Admin: 07/14/18 08:01 Dose: 2 mg - Labs Labs: 07/15/18 05:40 07/15/18 05:40 PT 15.3 Seconds (9.8-13.1) H 07/12/18 20:55 INR 1.3 07/12/18 20:55 APTT 31.3 Seconds (25.6-37.1) 07/12/18 20:55 - Neck Exam Neck Exam: Normal Inspection - Respiratory Exam Respiratory Exam: Clear to Ausculation Bilateral, NORMAL BREATHING PATTERN - Cardiovascular Exam Cardiovascular Exam: REGULAR RHYTHM - GI/Abdominal Exam GI & Abdominal Exam: Soft, Normal Bowel Sounds Assessment and Plan - Assessment and Plan (Free Text) Assessment: 33 yo male with cholecystitis doing well post ercp lap jasmina once able
--- NOTE | 2018-07-15 10:42 | CP.PCM.PN ---
Subjective - Date & Time of Evaluation Date of Evaluation: 07/15/18 Time of Evaluation: 10:12 - Subjective Subjective: Patient seen and examined this morning. There were no adverse events last night following ERCP. Patient is complaining of minimal RUQ pain. He denies fever, chill, chest pain or shortness of breath. Objective - Vital Signs/Intake and Output Vital Signs (last 24 hours): Temp Pulse Resp BP Pulse Ox 98 F 65 18 99/61 L 97 07/15/18 09:00 07/15/18 09:00 07/15/18 09:00 07/15/18 09:00 07/15/18 10:26 - Medications Medications: Current Medications Lactated Ringer's (Lactated Ringer's) 1,000 mls @ 125 mls/hr IV .Q8H [facility] Last Admin: 07/15/18 06:24 Dose: 125 mls/hr Piperacillin Sod/Tazobactam (Sod 3.375 gm/ Sodium Chloride) 100 mls @ 100 mls/hr IVPB Q6H [facility]; Protocol Last Admin: 07/15/18 06:22 Dose: 100 mls/hr Metronidazole (Flagyl 500mg/100ml Ns) 100 mls @ 100 mls/hr IVPB Q8 [facility]; Protocol Last Admin: 07/15/18 09:13 Dose: 100 mls/hr Morphine Sulfate (Morphine) 2 mg IVP Q4 PRN PRN Reason: Pain, moderate (4-7) Last Admin: 07/14/18 08:01 Dose: 2 mg - Labs Labs: 07/15/18 05:40 07/15/18 05:40 PT 15.3 Seconds (9.8-13.1) H 07/12/18 20:55 INR 1.3 07/12/18 20:55 APTT 31.3 Seconds (25.6-37.1) 07/12/18 20:55 - Constitutional Appears: Non-toxic - Head Exam Head Exam: ATRAUMATIC - Eye Exam Eye Exam: EOMI, Scleral icterus - ENT Exam ENT Exam: Mucous Membranes Moist - Respiratory Exam Respiratory Exam: Clear to Ausculation Bilateral. absent: Respiratory Distress - Cardiovascular Exam Cardiovascular Exam: REGULAR RHYTHM, +S1, +S2 - GI/Abdominal Exam GI & Abdominal Exam: Soft, Tenderness. absent: Guarding, Rigid Additional comments: RUQ tenderness - Extremities Exam Extremities Exam: absent: Calf Tenderness - Neurological Exam Neurological Exam: Alert, Awake, Oriented x3 - Psychiatric Exam Psychiatric exam: Normal Affect, Normal Mood - Skin Skin Exam: Dry, Intact Assessment and Plan - Assessment and Plan (Free Text) Assessment: 33 y/o M with no significant medical hx admitted for acute cholecystitis & choledocholithiasis. 1. Cholecystitis & choledocholithiasis (Acute) -Dr. Jasso's recommendations appreciated. -Dr. Sol' recommendations appreciated. -ERCP was performed yesterday. No complications following the procedure. -Plan for cholecystectomy by surgical team. -WBC continues to remain trending down from 19.5 to 8.2 today. Total bilirubin increased to 4.1 from 2.5 yesterday likely from ERCP. -ALT/AST wnl today (57/71), and were 32/67 yesterday. - Continue with LR @ 125ml/hr. - Continue pain control with morphine 2mg IBP Q4 PRN. - Continue zosyn. -Fagyl was added yesterday because patient's WBC remained elevated at 19.5 & spiked a fever yesterday. -Ultrasound: Gallbladder is mildly distended with significant mural thickening but no pericholecystic fluid & sonographic Alonso sign. -MRCP shows 2.6cm calculus impacted at gallbladder neck with cholecystitis pattern suggested. As 5.7mm calculus likely obstructs distal CBD which is dilat ed diffusely to 7mm. No intrahepatic biliary dilatation. (Read by Dr. Chino)Discordant from prelim report reported by [facility] 07/12. 2. Bibasilar infiltrates (reported on initial MRCP report). -Continue Zithromax 500mg IV QD (day #3). -CXR showed trace left pleural effusion with questionable linear atelectasis or fibrosis at left base as per Dr. Chino. -Blood cultures were negative. -Sputum culture uncollected.
[2018-07-15] MEDS ORDERED: Lactated Ringer's 1,000 ML IV SCH (17:29)
[2018-07-15 23:42] VITALS: O2SAT 97
[2018-07-16] MEDS: Piperacillin/Tazobact 3.375 GM in Sodium Chloride 0.9% 100 ML IVPB SCH ×2 (00:28→06:24)
[2018-07-16] MEDS: metroNIDAZOLE 500mg/100ml NS 100 ML IVPB SCH ×2 (01:24→09:50)
[2018-07-16 06:04] LABS: BASO % 0.6 % (0.0-2.0); EOS # 0.3 K/uL (0.0-0.7); EOS % 4.1 % (0.0-4.0); HEMOGLOBIN 12.8 g/dL (12.0-18.0); LYMPH # 1.3 K/uL (1.0-4.3); LYMPH % 18.9 % (20.0-40.0); MEAN CELL VOLUME 89.6 fl (80.0-94.0); MEAN CORPUSCULAR HEMOGLOBIN 29.7 pg (27.0-31.0); MEAN CORPUSCULAR HGB CONC 33.1 g/dL (33.0-37.0); MEAN PLATELET VOLUME 7.6 fl (7.2-11.7); MONO # 0.6 K/uL (0.0-0.8); MONO % 8.4 % (0.0-10.0); NEUT # 4.5 K/uL (1.8-7.0); RBC 4.31 Mil/uL (4.40-5.90); RED CELL DISTRIBUTION WIDTH 14.1 % (11.5-14.5); WHITE BLOOD COUNT 6.7 K/uL (4.8-10.8)
[2018-07-16 06:12] LABS: ALB/GLOB RATIO 0.9 (1.0-2.1); ALBUMIN 3.2 g/dL (3.5-5.0); ALT/SGPT 85 U/L (21-72); AST/SGOT 80 U/L (17-59); BLOOD UREA NITROGEN 11 mg/dl (9-20); CALCIUM 8.7 mg/dL (8.4-10.2); GFR NON-AFRICAN AMERICAN > 60
[2018-07-16 06:18] LABS: INR 1.1; PROTHROMBIN TIME 12.2 Seconds (9.8-13.1)
[2018-07-16 06:21] LABS: PARTIAL THROMBOPLASTIN TIME 31.6 Seconds (25.6-37.1)
[2018-07-16] MEDS ORDERED: Potassium Chloride 20 mEq ER Tab PO ONE (07:45)
[2018-07-16 07:59] VITALS: BP 107/66; PULSE 69; RESP 20; TEMP 98.1
--- NOTE | 2018-07-16 08:03 | CP.PCM.PN ---
<Tawanna Guardado - Last Filed: 07/16/18 10:20> Subjective - Date & Time of Evaluation Date of Evaluation: 07/16/18 Time of Evaluation: 07:10 - Subjective Subjective: Surgery progress note for Dr. Jasso Pt seen and examined at bedside this AM. No adverse events overnight. Pt reports pain is improving, denies nausea, vomiting, but does report diarrhea, tolerated diet Objective - Vital Signs/Intake and Output Vital Signs (last 24 hours): Temp Pulse Resp BP Pulse Ox 98.1 F 69 20 107/66 97 07/16/18 07:59 07/16/18 07:59 07/16/18 07:59 07/16/18 07:59 07/16/18 07:59 - Medications Medications: Current Medications Piperacillin Sod/Tazobactam (Sod 3.375 gm/ Sodium Chloride) 100 mls @ 100 mls/hr IVPB Q6H [facility]; Protocol Last Admin: 07/16/18 06:24 Dose: 100 mls/hr Metronidazole (Flagyl 500mg/100ml Ns) 100 mls @ 100 mls/hr IVPB Q8 [facility]; Protocol Last Admin: 07/16/18 01:24 Dose: 100 mls/hr Lactated Ringer's (Lactated Ringer's) 1,000 mls @ 75 mls/hr IV .[id number] [facility] Last Admin: 07/15/18 18:34 Dose: 75 mls/hr Morphine Sulfate (Morphine) 2 mg IVP Q4 PRN PRN Reason: Pain, moderate (4-7) Last Admin: 07/14/18 08:01 Dose: 2 mg - Labs Labs: 07/16/18 05:40 07/16/18 05:40 PT 12.2 Seconds (9.8-13.1) 07/16/18 05:40 INR 1.1 07/16/18 05:40 APTT 31.6 Seconds (25.6-37.1) 07/16/18 05:40 - Constitutional Appears: Well, Non-toxic, No Acute Distress - Head Exam Head Exam: ATRAUMATIC, NORMOCEPHALIC - Eye Exam Eye Exam: Normal appearance. absent: Conjunctival injection, Scleral icterus - ENT Exam ENT Exam: Mucous Membranes Moist, Normal Oropharynx - Respiratory Exam Respiratory Exam: NORMAL BREATHING PATTERN. absent: Accessory Muscle Use, Respiratory Distress - Cardiovascular Exam Cardiovascular Exam: RRR - GI/Abdominal Exam GI & Abdominal Exam: Soft, Tenderness (mild RUQ tenderness). absent: Distended, Rebound - Extremities Exam Extremities Exam: absent: Calf Tenderness, Pedal Edema, Tenderness - Neurological Exam Neurological Exam: Alert, Awake, Oriented x3 - Psychiatric Exam Psychiatric exam: Normal Affect, Normal Mood - Skin Skin Exam: Dry, Normal Color, Warm Assessment and Plan - Assessment and Plan (Free Text) Assessment: 33M with choledocholithiasis s/p ERCP with sphincterotomy, and cholecystitis Plan: patient recovering well with persistent but improving hyperbilirubinemia Patient is clear for discharge with PO augmentin and return on Thursday afternoon for outpatient laparoscopic cholecystectomy Thank you for opportunity to care for this patient Discussed with Dr. Romero Guardado, PGY2 <Miguel Jasso - Last Filed: 07/16/18 10:24> Subjective - Date & Time of Evaluation Time of Evaluation: 09:45 - Subjective Subjective: Patient was seen and examined at the bedside. Agree with resident's note above. Objective - Vital Signs/Intake and Output Vital Signs (last 24 hours): Temp Pulse Resp BP Pulse Ox 98.1 F 69 20 107/66 97 07/16/18 07:59 07/16/18 07:59 07/16/18 07:59 07/16/18 07:59 07/16/18 07:59 - Medications Medications: Current Medications Piperacillin Sod/Tazobactam (Sod 3.375 gm/ Sodium Chloride) 100 mls @ 100 mls/hr IVPB Q6H [facility]; Protocol Last Admin: 07/16/18 06:24 Dose: 100 mls/hr Metronidazole (Flagyl 500mg/100ml Ns) 100 mls @ 100 mls/hr IVPB Q8 RUSTAM; Protocol Last Admin: 07/16/18 09:50 Dose: 100 mls/hr Lactated Ringer's (Lactated Ringer's) 1,000 mls @ 75 mls/hr IV .[id number] [facility] Last Admin: 07/15/18 18:34 Dose: 75 mls/hr Morphine Sulfate (Morphine) 2 mg IVP Q4 PRN PRN Reason: Pain, moderate (4-7) Last Admin: 07/14/18 08:01 Dose: 2 mg - Labs Labs: 07/16/18 05:40 07/16/18 05:40 PT 12.2 Seconds (9.8-13.1) 07/16/18 05:40 INR 1.1 07/16/18 05:40 APTT 31.6 Seconds (25.6-37.1) 07/16/18 05:40 - GI/Abdominal Exam Additional comments: soft, NT, ND, BS+, no rebound, no guarding, negative Alonso's sign
--- NOTE | 2018-07-16 11:35 | CP.PCM.DIS ---
<Laurie Nicholson - Last Filed: 07/16/18 12:43> Provider - Provider Date of Admission: 07/12/18 16:48 Attending physician: Eddi Riddle MD Consults: 07/12/18 16:46 Surgery [General Surgery Consult] Stat Comment: Consulting Provider: Miguel Jasso Consulting Physician: Miguel Jasso Reason for Consult: cholecystits 07/12/18 20:09 Gastroenterology Consult Routine Comment: Consulting Provider: Olu Sol Consulting Physician: Olu Sol Reason for Consult: obstructive cholangitis Time Spent in preparation of Discharge (in minutes): 45 Hospital Course - Lab Results Lab Results: Micro Results 07/12/18 17:30 Blood-Venous Blood Culture - Preliminary NO GROWTH AFTER 3 DAYS 07/12/18 17:10 Blood-Venous Blood Culture - Preliminary NO GROWTH AFTER 3 DAYS 07/12/18 16:00 Urine,Clean Catch Urine Culture - Final No Growth (<1,000 CFU/ML) Most Recent Lab Values WBC 6.7 K/uL (4.8-10.8) 07/16/18 05:40 RBC 4.31 Mil/uL (4.40-5.90) L 07/16/18 05:40 Hgb 12.8 g/dL (12.0-18.0) 07/16/18 05:40 Hct 38.6 % (35.0-51.0) 07/16/18 05:40 MCV 89.6 fl (80.0-94.0) 07/16/18 05:40 MCH 29.7 pg (27.0-31.0) 07/16/18 05:40 MCHC 33.1 g/dL (33.0-37.0) 07/16/18 05:40 RDW 14.1 % (11.5-14.5) 07/16/18 05:40 Plt Count 311 K/uL (130-400) 07/16/18 05:40 MPV 7.6 fl (7.2-11.7) 07/16/18 05:40 Neut % (Auto) 68.0 % (50.0-75.0) 07/16/18 05:40 Lymph % (Auto) 18.9 % (20.0-40.0) L 07/16/18 05:40 Ware % (Auto) 8.4 % (0.0-10.0) 07/16/18 05:40 Eos % (Auto) 4.1 % (0.0-4.0) H 07/16/18 05:40 Baso % (Auto) 0.6 % (0.0-2.0) 07/16/18 05:40 Neut # (Auto) 4.5 K/uL (1.8-7.0) 07/16/18 05:40 Lymph # (Auto) 1.3 K/uL (1.0-4.3) 07/16/18 05:40 Ware # (Auto) 0.6 K/uL (0.0-0.8) 07/16/18 05:40 Eos # (Auto) 0.3 K/uL (0.0-0.7) 07/16/18 05:40 Baso # (Auto) 0.0 K/uL (0.0-0.2) 07/16/18 05:40 Neutrophils % (Manual) 86 % (42-75) H 07/12/18 14:50 Lymphocytes % (Manual) 7 % (20-50) L 07/12/18 14:50 Monocytes % (Manual) 7 % (0-10) 07/12/18 14:50 Platelet Estimate Normal (NORMAL) 07/12/18 14:50 RBC Morphology Normal (NORMAL) 07/12/18 14:50 PT 12.2 Seconds (9.8-13.1) 07/16/18 05:40 INR 1.1 07/16/18 05:40 APTT 31.6 Seconds (25.6-37.1) 07/16/18 05:40 pO2 57 mm/Hg (30-55) H 07/12/18 16:57 VBG pH 7.44 (7.32-7.43) H 07/12/18 16:57 VBG pCO2 38 mmHg (40-60) L 07/12/18 16:57 VBG HCO3 26.0 mmol/L 07/12/18 16:57 VBG Total CO2 27.0 mmol/L (22-28) 07/12/18 16:57 VBG O2 Sat (Calc) 95.4 % (40-65) H 07/12/18 16:57 VBG Base Excess 1.7 mmol/L (0.0-2.0) 07/12/18 16:57 VBG Potassium 3.4 mmol/L (3.6-5.2) L 07/12/18 16:57 Sodium 133.0 mmol/L (132-148) 07/12/18 16:57 Chloride 103.0 mmol/L (98-107) 07/12/18 16:57 Glucose 130 mg/dL (75-110) H 07/12/18 16:57 Lactate 1.4 mmol/L (0.7-2.1) 07/12/18 16:57 FiO2 21.0 % 07/12/18 16:57 Sodium 139 mmol/l (132-148) 07/16/18 05:40 Potassium 3.5 MMOL/L (3.6-5.0) L 07/16/18 05:40 Chloride 101 mmol/L (98-107) 07/16/18 05:40 Carbon Dioxide 26 mmol/L (22-30) 07/16/18 05:40 Anion Gap 16 (10-20) 07/16/18 05:40 BUN 11 mg/dl (9-20) 07/16/18 05:40 Creatinine 0.8 mg/dl (0.8-1.5) 07/16/18 05:40 Est GFR ( Amer) > 60 07/16/18 05:40 Est GFR (Non-Af Amer) > 60 07/16/18 05:40 Random Glucose 121 mg/dL (75-110) H 07/16/18 05:40 Calcium 8.7 mg/dL (8.4-10.2) 07/16/18 05:40 Phosphorus 3.1 mg/dl (2.5-4.5) 07/15/18 05:40 Magnesium 2.5 MG/DL (1.6-2.3) H 07/15/18 05:40 Total Bilirubin 2.6 mg/dl (0.2-1.3) H 07/16/18 05:40 Direct Bilirubin 0.5 mg/ml (0.0-0.4) H 07/14/18 05:45 AST 80 U/L (17-59) H D 07/16/18 05:40 ALT 85 U/L (21-72) H 07/16/18 05:40 Alkaline Phosphatase 221 U/L (38-126) H D 07/16/18 05:40 Total Protein 6.6 G/DL (6.3-8.2) 07/16/18 05:40 Albumin 3.2 g/dL (3.5-5.0) L 07/16/18 05:40 Globulin 3.5 gm/dL (2.2-3.9) 07/16/18 05:40 Albumin/Globulin Ratio 0.9 (1.0-2.1) L 07/16/18 05:40 Lipase 16 U/L (23-300) L 07/13/18 08:23 Venous Blood Potassium 3.4 mmol/L (3.6-5.2) L 07/12/18 16:57 Urine Color Yellow (YELLOW) 07/12/18 16:23 Urine Clarity Slighty-cloudy (Clear) 07/12/18 16:23 Urine pH 7.0 (5.0-8.0) 07/12/18 16:23 Ur Specific George 1.006 (1.003-1.030) 07/12/18 16:23 Urine Protein Negative mg/dL (NEGATIVE) 07/12/18 16:23 Urine Glucose (UA) Neg mg/dL (NEGATIVE) 07/12/18 16:23 Urine Ketones Negative mg/dL (NEGATIVE) 07/12/18 16:23 Urine Blood Negative (NEGATIVE) 07/12/18 16:23 Urine Nitrate Negative (NEGATIVE) 07/12/18 16:23 Urine Bilirubin Negative (NEGATIVE) 07/12/18 16:23 Urine Urobilinogen 0.2-1.0 mg/dL (0.2-1.0) 07/12/18 16:23 Ur Leukocyte Esterase Neg Florentin/uL (Negative) 07/12/18 16:23 Urine RBC (Auto) 1 /hpf (0-3) 07/12/18 16:23 Urine Microscopic WBC < 1 /hpf (0-5) 07/12/18 16:23 Urine Bacteria Rare (<OCC) 07/12/18 16:23 Blood Type O POSITIVE 07/16/18 05:40 Blood Type Confirm O POSITIVE 07/16/18 07:36 Antibody Screen Negative 07/16/18 05:40 BBK History Checked No verified bt 07/16/18 05:40 - Hospital Course Hospital Course: 33 y/o M with no significant pmh was admitted for evaluation of RUQ pain, elevated LFT's and bilirubin found to have cholecystitis. Ultrasound showed gallbladder to be mildly distended with significant mural thickening but no pericholecystic fluid & sonographic Alonso sign. IV zosyn was started. Tmax during hospitalization was 102.8F with wbc elevated at 19.5. MRCP was done & showed 2.6cm calculus impacted at gallbladder neck with cholecystitis pattern suggested. As 5.7mm calculus likely obstructs distal CBD which is dilated diffusely to 7mm. No intrahepatic biliary dilatation. ERCP was performed by Dr. Sol on 07/14/2018 with stone removal. WBC resolved and temperature was wnl. Flagyl was started. Following this, LFT's began to normalize but bilirubin trended up to 4.1. Patient was seen and examined today. He remained afebrile overnight. Patient stated his pain is minimal. He was able to tolerate regular PO diet without nausea or vomitting. He denied any fever, chills, chest pain or shortness of breath. Plan as per surgery team is discharge today with script for augmentin & flagyl with return on Thursday afternoon for outpatient laparoscopic cholecystectomy. 1. Cholecystitis with choledocholithiasis -Augmentin PO 875-125mg BID Q12 x 7 days -Flagyl PO 500mg Q8 x 7 days 2. Bibasilar infiltrates (reported on initial MRCP report). -CXR showed trace left pleural effusion with questionable linear atelectasis or fibrosis at left base as per Dr. Chino. -Continue PO antibiotics. Discharge Exam - Head Exam Head Exam: ATRAUMATIC, NORMOCEPHALIC - ENT Exam ENT Exam: Mucous Membranes Moist - Respiratory Exam Respiratory Exam: absent: Wheezes, Respiratory Distress, Stridor - Cardiovascular Exam Cardiovascular Exam: REGULAR RHYTHM, +S1, +S2 - GI/Abdominal Exam GI & Abdominal Exam: Normal Bowel Sounds, Soft. absent: Guarding, Rigid Additional comments: minimal RUQ tenderness - Neurological Exam Neurological exam: Alert, Oriented x3 - Psychiatric Exam Psychiatric exam: Normal Affect, Normal Mood - Skin Skin Exam: Dry, Intact Discharge Plan - Discharge Medications Prescriptions: metroNIDAZOLE [Flagyl] 500 mg PO Q8 7 Days #21 tab - Follow Up Plan Condition: STABLE Disposition: HOME/ ROUTINE Instructions: Endoscopic Retrograde Cholangiopancreatography (DC), Amoxicillin and Clavulanate, Cholecystitis (DC) Additional Instructions: regresar lunes jul 19 para cirujia no comer despues de la medianoche el araceli para cirujia el Referrals: Miguel Jasso MD [Staff Provider] - Olu Sol MD, PhD [Staff Provider] - <Kacey Gómez - Last Filed: 07/16/18 18:08> Provider - Provider Date of Admission: 07/12/18 16:48 Attending physician: Eddi Riddle MD Consults: 07/12/18 16:46 Surgery [General Surgery Consult] Stat Comment: Consulting Provider: Miguel Jasso Consulting Physician: Miguel Jasso Reason for Consult: cholecystits 07/12/18 20:09 Gastroenterology Consult Routine Comment: Consulting Provider: Olu Sol Consulting Physician: Olu Sol Reason for Consult: obstructive cholangitis Hospital Course - Lab Results Lab Results: Micro Results 07/12/18 17:10 Blood-Venous Blood Culture - Preliminary NO GROWTH AFTER 4 DAYS 07/12/18 17:30 Blood-Venous Blood Culture - Preliminary NO GROWTH AFTER 3 DAYS 07/12/18 16:00 Urine,Clean Catch Urine Culture - Final No Growth (<1,000 CFU/ML) Most Recent Lab Values WBC 6.7 K/uL (4.8-10.8) 07/16/18 05:40 RBC 4.31 Mil/uL (4.40-5.90) L 07/16/18 05:40 Hgb 12.8 g/dL (12.0-18.0) 07/16/18 05:40 Hct 38.6 % (35.0-51.0) 07/16/18 05:40 MCV 89.6 fl (80.0-94.0) 07/16/18 05:40 MCH 29.7 pg (27.0-31.0) 07/16/18 05:40 MCHC 33.1 g/dL (33.0-37.0) 07/16/18 05:40 RDW 14.1 % (11.5-14.5) 07/16/18 05:40 Plt Count 311 K/uL (130-400) 07/16/18 05:40 MPV 7.6 fl (7.2-11.7) 07/16/18 05:40 Neut % (Auto) 68.0 % (50.0-75.0) 07/16/18 05:40 Lymph % (Auto) 18.9 % (20.0-40.0) L 07/16/18 05:40 Ware % (Auto) 8.4 % (0.0-10.0) 07/16/18 05:40 Eos % (Auto) 4.1 % (0.0-4.0) H 07/16/18 05:40 Baso % (Auto) 0.6 % (0.0-2.0) 07/16/18 05:40 Neut # (Auto) 4.5 K/uL (1.8-7.0) 07/16/18 05:40 Lymph # (Auto) 1.3 K/uL (1.0-4.3) 07/16/18 05:40 Ware # (Auto) 0.6 K/uL (0.0-0.8) 07/16/18 05:40 Eos # (Auto) 0.3 K/uL (0.0-0.7) 07/16/18 05:40 Baso # (Auto) 0.0 K/uL (0.0-0.2) 07/16/18 05:40 Neutrophils % (Manual) 86 % (42-75) H 07/12/18 14:50 Lymphocytes % (Manual) 7 % (20-50) L 07/12/18 14:50 Monocytes % (Manual) 7 % (0-10) 07/12/18 14:50 Platelet Estimate Normal (NORMAL) 07/12/18 14:50 RBC Morphology Normal (NORMAL) 07/12/18 14:50 PT 12.2 Seconds (9.8-13.1) 07/16/18 05:40 INR 1.1 07/16/18 05:40 APTT 31.6 Seconds (25.6-37.1) 07/16/18 05:40 pO2 57 mm/Hg (30-55) H 07/12/18 16:57 VBG pH 7.44 (7.32-7.43) H 07/12/18 16:57 VBG pCO2 38 mmHg (40-60) L 07/12/18 16:57 VBG HCO3 26.0 mmol/L 07/12/18 16:57 VBG Total CO2 27.0 mmol/L (22-28) 07/12/18 16:57 VBG O2 Sat (Calc) 95.4 % (40-65) H 07/12/18 16:57 VBG Base Excess 1.7 mmol/L (0.0-2.0) 07/12/18 16:57 VBG Potassium 3.4 mmol/L (3.6-5.2) L 07/12/18 16:57 Sodium 133.0 mmol/L (132-148) 07/12/18 16:57 Chloride 103.0 mmol/L (98-107) 07/12/18 16:57 Glucose 130 mg/dL (75-110) H 07/12/18 16:57 Lactate 1.4 mmol/L (0.7-2.1) 07/12/18 16:57 FiO2 21.0 % 07/12/18 16:57 Sodium 139 mmol/l (132-148) 07/16/18 05:40 Potassium 3.5 MMOL/L (3.6-5.0) L 07/16/18 05:40 Chloride 101 mmol/L (98-107) 07/16/18 05:40 Carbon Dioxide 26 mmol/L (22-30) 07/16/18 05:40 Anion Gap 16 (10-20) 07/16/18 05:40 BUN 11 mg/dl (9-20) 07/16/18 05:40 Creatinine 0.8 mg/dl (0.8-1.5) 07/16/18 05:40 Est GFR ( Amer) > 60 07/16/18 05:40 Est GFR (Non-Af Amer) > 60 07/16/18 05:40 Random Glucose 121 mg/dL (75-110) H 07/16/18 05:40 Calcium 8.7 mg/dL (8.4-10.2) 07/16/18 05:40 Phosphorus 3.1 mg/dl (2.5-4.5) 07/15/18 05:40 Magnesium 2.5 MG/DL (1.6-2.3) H 07/15/18 05:40 Total Bilirubin 2.6 mg/dl (0.2-1.3) H 07/16/18 05:40 Direct Bilirubin 0.5 mg/ml (0.0-0.4) H 07/14/18 05:45 AST 80 U/L (17-59) H D 07/16/18 05:40 ALT 85 U/L (21-72) H 07/16/18 05:40 Alkaline Phosphatase 221 U/L (38-126) H D 07/16/18 05:40 Total Protein 6.6 G/DL (6.3-8.2) 07/16/18 05:40 Albumin 3.2 g/dL (3.5-5.0) L 07/16/18 05:40 Globulin 3.5 gm/dL (2.2-3.9) 07/16/18 05:40 Albumin/Globulin Ratio 0.9 (1.0-2.1) L 07/16/18 05:40 Lipase 16 U/L (23-300) L 07/13/18 08:23 Venous Blood Potassium 3.4 mmol/L (3.6-5.2) L 07/12/18 16:57 Urine Color Yellow (YELLOW) 07/12/18 16:23 Urine Clarity Slighty-cloudy (Clear) 07/12/18 16:23 Urine pH 7.0 (5.0-8.0) 07/12/18 16:23 Ur Specific George 1.006 (1.003-1.030) 07/12/18 16:23 Urine Protein Negative mg/dL (NEGATIVE) 07/12/18 16:23 Urine Glucose (UA) Neg mg/dL (NEGATIVE) 07/12/18 16:23 Urine Ketones Negative mg/dL (NEGATIVE) 07/12/18 16:23 Urine Blood Negative (NEGATIVE) 07/12/18 16:23 Urine Nitrate Negative (NEGATIVE) 07/12/18 16:23 Urine Bilirubin Negative (NEGATIVE) 07/12/18 16:23 Urine Urobilinogen 0.2-1.0 mg/dL (0.2-1.0) 07/12/18 16:23 Ur Leukocyte Esterase Neg Florentin/uL (Negative) 07/12/18 16:23 Urine RBC (Auto) 1 /hpf (0-3) 07/12/18 16:23 Urine Microscopic WBC < 1 /hpf (0-5) 07/12/18 16:23 Urine Bacteria Rare (<OCC) 07/12/18 16:23 Blood Type O POSITIVE 07/16/18 05:40 Blood Type Confirm O POSITIVE 07/16/18 07:36 Antibody Screen Negative 07/16/18 05:40 BBK History Checked No verified bt 07/16/18 05:40 Attending/Attestation - Attestation I have personally seen and examined this patient.: Yes I have fully participated in the care of the patient.: Yes I have reviewed all pertinent clinical information, including history, physical exam and plan: Yes Notes (Text): Sepsis sec to Acute Cholangitis ( POA) Choledocholithiasis s/p ERCP - received IV Zosyn - Pt's pain and fever resolved, LFTs trending down - tolerating PO diet - plan for Lap Jessica on Thursday - d/c pt home on PO Augmentin and Flagyl - Pt to go to [facility] early Thursday morning for scheduled Lap Jessica
--- NOTE | 2018-07-16 19:09 | CP.PCM.PN ---
Subjective - Date & Time of Evaluation Date of Evaluation: 07/16/18 Time of Evaluation: 12:35 - Subjective Subjective: no overnight events Objective - Vital Signs/Intake and Output Vital Signs (last 24 hours): Temp Pulse Resp BP Pulse Ox 98.1 F 69 20 107/66 97 07/16/18 07:59 07/16/18 07:59 07/16/18 07:59 07/16/18 07:59 07/16/18 07:59 - Labs Labs: 07/16/18 05:40 07/16/18 05:40 PT 12.2 Seconds (9.8-13.1) 07/16/18 05:40 INR 1.1 07/16/18 05:40 APTT 31.6 Seconds (25.6-37.1) 07/16/18 05:40 - Head Exam Head Exam: NORMOCEPHALIC - Respiratory Exam Respiratory Exam: Clear to Ausculation Bilateral, NORMAL BREATHING PATTERN - Cardiovascular Exam Cardiovascular Exam: REGULAR RHYTHM - GI/Abdominal Exam GI & Abdominal Exam: Soft, Normal Bowel Sounds Assessment and Plan - Assessment and Plan (Free Text) Assessment: 33 yo male with cholecystitis doing well abx lap jasmina when able
[2018-07-17] MEDS ORDERED: Amoxicillin-Clav 875-125 mg Tab PO SCH (09:00)
== END 2018-07-16 13:48 | disposition home or self-care (01) | DRG 720 ==
LOC: H.ER 12:54 → H.ERHOLD 16:48 → H.MEDSURG1 18:50
PROC: 3E02340 Introduction of Influenza Vaccine into Muscle, Percutaneous Approach (ICD-10-PCS; 2018-07-13)
PROC: 3E0234Z Introduction of Serum, Toxoid and Vaccine into Muscle, Percutaneous Approach (ICD-10-PCS; 2018-07-13)
PROC: 0DB68ZX Excision of Stomach, Via Natural or Artificial Opening Endoscopic, Diagnostic (ICD-10-PCS; 2018-07-14)
PROC: 0FC98ZZ Extirpation of Matter from Common Bile Duct, Via Natural or Artificial Opening Endoscopic (ICD-10-PCS; principal; 2018-07-14 12:30)
DX: A41.9 Sepsis, unspecified organism (principal); K80.62 Calculus of gallbladder and bile duct with acute cholecystitis without obstruction; J90 Pleural effusion, not elsewhere classified; K29.50 Unspecified chronic gastritis without bleeding; Z23 Encounter for immunization

== ENCOUNTER 2018-07-19 10:28 | Day surgery (SDC) | payer OTHER ==
[2018-07-19] MEDS ORDERED: Lactated Ringer's 1,000 ML IV ONE ×2 (11:14→13:30)
[2018-07-19] MEDS ORDERED: Bupivacaine 0.5% Inj(30mL) ONE (11:49)
[2018-07-19] MEDS ORDERED: Lidocaine 4% (Laryng-O-Jet) Kit MM ONE (12:27)
[2018-07-19] MEDS ORDERED: ePHEDrine 50 mg/ml Inj ONE (12:27)
[2018-07-19] MEDS ORDERED: Succinylcholine Chloride 20 mg/ml Syr (5 ml) IV ONE (12:27)
[2018-07-19] MEDS ORDERED: Rocuronium 10 mg/ml (5 ml) ONE (12:27)
[2018-07-19] MEDS ORDERED: Midazolam 2 MG/2 ML VIAL ONE (12:27)
[2018-07-19] MEDS ORDERED: Propofol 10 mg/ml Inj (20 ML) ONE ×2 (12:28→13:54)
[2018-07-19] MEDS ORDERED: Dexamethasone 4 mg/1 ml ONE (12:58)
[2018-07-19] MEDS ORDERED: Neostigmine 1:1000 (1 mg/ml) Inj ONE (14:02)
[2018-07-19] MEDS ORDERED: Lactated Ringer's 1,000 ML IV SCH (14:30)
[2018-07-19] MEDS ORDERED: Oxycodone/Acetaminophen 5/325 mg Tab PO PRN (14:32)
--- NOTE | 2018-07-19 14:32 | PCM.SURG1 ---
Surgeon's Initial Post Op Note - Surgeon's Notes Surgeon: Dr. Jasso [employer] Professor: Dr. Laughlin, Dr. Ferguson, Dr. Mcfarland Type of Anesthesia: General Endo, Local Pre-Operative Diagnosis: cholangitis, cholecystitis Operative Findings: acutely inflammed gallbladder, dense adhesions Post-Operative Diagnosis: cholangitis, cholecystitis Operation Performed: laparoscopic cholecystectomy Specimen/Specimens Removed: gallbladder Estimated Blood Loss: EBL {In ML}: 50 Blood Products Given: N/A Drains Used: No Drains Post-Op Condition: Good Date of Surgery/Procedure: 07/19/18 Time of Surgery/Procedure: 14:32
--- NOTE | 2018-07-19 14:36 | CP.SDSHP ---
Same Day Surgery H & P - Allergies Allergies: Allergies No Known Allergies Allergy (Verified 07/19/18 10:44) - Physical Exam Vital Signs: Vital Signs 07/19/18 11:03 Temperature 97.8 F Pulse Rate 77 Respiratory 18 Rate Blood Pressure 108/71 O2 Sat by Pulse 96 Oximetry Short Stay Discharge - Short Stay Discharge Admitting Diagnosis/Reason for Visit: K81.0 Disposition: HOME/ ROUTINE Follow-up: f/u with Dr. Jasso in 1-2weeks Additional Instructions (Diet, Activity): can shower, do not bathe or soak incisions no lifting > 10lbs until cleared cont abx as prescribed Progress Note/Discharge Note with Instructions: Patient admitted through [facility] for lap jasmina. Patient tolerated procedure well and transferred into PACU in good stable condition.
[2018-07-19] MEDS: HYDROmorphone 0.5 mg/0.5 ml ISec IVP PRN ×2 (14:55→15:10)
[2018-07-19 17:10] VITALS: RESP 18
[2018-07-19 18:00] VITALS: BP 109/75; PULSE 98; TEMP 97.6; O2SAT 96
[2018-07-19] MEDS ORDERED: Amoxicillin-Clav 875-125 mg Tab PO SCH (21:00)
--- NOTE | 2018-07-19 23:30 | OP ---
PROCEDURE DATE: 07/19/2018 PREOPERATIVE DIAGNOSES: Choledocholithiasis, acute cholecystitis. POSTOPERATIVE DIAGNOSES: Choledocholithiasis, acute cholecystitis. PROCEDURE: Laparoscopic cholecystectomy. SURGEON: Miguel Jasso MD BROADLOOM WEAVER: Davon Laughlin MD SECOND BROADLOOM WEAVER: Kota Mcfarland DO THIRD BROADLOOM WEAVER: ANESTHESIOLOGIST: Dina Moss MD ANESTHESIA: General endotracheal intubation. IV FLUIDS: Crystalloids. ESTIMATED BLOOD LOSS: 50 mL. INTRAOPERATIVE FINDINGS: Acute cholecystitis, cholelithiasis. SPECIMEN: Gallbladder with stones. BRIEF HISTORY: Mr. Nino Stewart is a very pleasant 33-year-old gentleman, who initially presented to the hospital complaining of epigastric right upper quadrant abdominal pain and was found to have elevated liver enzymes. Upon further investigation and MRCP, the patient was found to have choledocholithiasis and underwent ERCP with Dr. Sol with extraction of common bile duct stone. Subsequent to that, the patient's liver enzymes have improved; however, did not normalize yet and white count came down. The patient was asymptomatic and was discharged home for two days and was brought in for elective procedure. All the risks and benefits of the procedure were explained to the patient. With the patient having a full understanding of all the risks and benefits involved, informed consent was obtained and the patient was taken to the operating room for above-stated procedure. DESCRIPTION OF PROCEDURE: The patient was brought into the operating room and placed supine on the operating room table. Bilateral Flowtron boots were applied to the patient's lower extremities. After successful induction of anesthesia and successful endotracheal intubation by the Anesthesia Team, the patient's abdomen was shaved and prepped with ChloraPrep stick and draped in a standard surgical fashion. Prior to the beginning of the procedure, a time-out was called in the room and everyone in room were in agreement. The patient received prophylactic Ancef antibiotic prior to the incision time. Using an 11-blade scalpel knife, approximately 5 mm incision was made in the right side of the patient's abdomen and subsequent to that using 5 mm Optiview Visiport, the patient's abdomen was entered under direct visualization and subsequent to that pneumoperitoneum was achieved with good opening pressures. Once this was accomplished,a 5 mm 0-degree scope was introduced into the patient's abdomen and the abdomen was inspected. We immediately were able to visualize some omental adhesions to the anterior abdominal wall. Then, attention was turned to the subxiphoid area. Using the 11-blade scalpel knife, approximately 5 mm incision was made in a transverse fashion and subsequent to that 5 mm trocar was introduced into the patient's abdomen. At this point in time, attention was turned to the umbilical area. Using the 11-blade scalpel knife, approximately 1 cm incision was made in a longitudinal fashion in umbilicus and subsequent to that the 11 mm trocar was introduced into the patient's abdomen. At this point in time, attention was turned to the right side of the patient's abdomen again. Using the 11-blade scalpel knife, another 5 mm incision was made in a transverse fashion and subsequent to that another 5 mm trocar was introduced into the patient's abdomen. At this point in time, it appeared that omentum was wrapped in the gallbladder that appeared to be inflamed. Using the suction-irrigation device and Maryland dissector, the omentum was down from the gallbladder. Subsequent to that, the gallbladder was grasped to the fundus and infundibulum using the Prabhu and Geck graspers and subsequent to that using Maryland dissector, cystic duct and cystic artery were dissected out and a critical view of safety was achieved. The cystic duct was clipped with two clips proximal and one distal and transected with laparoscopic scissors. Same thing was done for the cystic artery, was clipped with two clips proximal, one distal, and transected with laparoscopic scissors. Upon further dissection, we encountered the serial branch of the cystic artery that was dissected out and clipped with two clips proximal, one distal, and transected with laparoscopic scissors. At this point in time, the gallbladder was dissected off the gallbladder fossa using hook electrical cautery and once the gallbladder was completely freed up from the gallbladder fossa, EndoCatch bag was introduced into the patient's abdomen. Gallbladder was placed inside the bag and the bag was closed. At this point in time, gallbladder fossa was inspected for hemostasis. Hemostasis was achieved with hook electrical cautery. Subsequent to that, the patient's gallbladder fossa and abdominal cavity were copiously irrigated and fluid was suctioned out. Hemostasis was confirmed. At this point in time, an 11-mm trocar together with the EndoCatch bag and gallbladder were removed from the patient's abdomen and passed off to the [facility] as a specimen. Fascial layer at the umbilical port sites was closed with one interrupted 0 Vicryl suture on UR-5 needle in a [id number] fashion and once this was accomplished, the patient's abdomen was fully desufflated and the rest of the trocars were removed from the patient's abdomen and the skin was closed with 4-0 Monocryl suture in a running subcuticular fashion. At the end of the procedure, all instrument counts, needles and sponges were correct. The patient's incisions were infiltrated with Marcaine anesthetic, the patient's abdomen was washed and dried, and Dermabond was applied to the site of the incisions, the skin over which was closed with 4-0 Monocryl suture in a subcuticular fashion. The patient's abdomen was washed and dried, and Dermabond was applied to the site of the incisions. The patient was successfully extubated by the Anesthesia Team, transferred to the stretcher, and taken to the recovery room in a stable condition. At the end of the procedure, all instrument counts, needles and sponges were correct. Miguel Jasso MD
== END 2018-07-19 18:22 | disposition home or self-care (01) ==
LOC: H.OPSURG 10:28
PROVIDERS: ATTEND Surgery
DX: K80.00 Calculus of gallbladder with acute cholecystitis without obstruction (principal)
CPT/HCPCS: 47562; 88304; J0690; J1100; J1170; J2001; J2250; J2405; J2704; J2710; J3010; J7120

== ENCOUNTER 2018-09-27 08:36 | Day surgery (SDC) | payer MEDICAID, SELFPAY ==
[2018-09-23 18:18] VITALS: BMI 27.7
[2018-09-27] MEDS ORDERED: Rocuronium 10 mg/ml (5 ml) ONE (08:45)
[2018-09-27] MEDS ORDERED: ePHEDrine 50 mg/ml Inj ONE (08:45)
[2018-09-27] MEDS ORDERED: Propofol 10 mg/ml Inj (20 ML) ONE (08:45)
[2018-09-27] MEDS ORDERED: Midazolam 2 MG/2 ML VIAL ONE (08:46)
[2018-09-27] MEDS ORDERED: Succinylcholine Chloride 20 mg/ml Syr (5 ml) IV ONE (08:47)
[2018-09-27] MEDS ORDERED: Ropivacaine 0.5% 30ML IV ONE (08:51)
[2018-09-27] MEDS ORDERED: Lactated Ringer's 1,000 ML IV ONE ×2 (08:53→12:34)
--- NOTE | 2018-09-27 09:04 | CP.PCM.CON ---
History of Present Illness - History of Present Illness History of Present Illness: [facility] note for Dr Jarquin 33 y/o male with no significant PMHx seen and evaluated in [facility] for left ankle ORIF. Patient states approximately 8 months ago, he had a "fracture" and had a an air cast placed but has not followed up with a specialist as he moved from [place] to [place]. Admits to being NPO past midnight. He otherwise denies any new trauma, injury, weakness, numbness or tingling in his foot. He denies any other complaints. Patient denies F/N/V/SOB/CP. Past Patient History - Past Medical History & Family History Past Medical History?: Yes - Past Social History Smoking Status: Never Smoked - CARDIAC Hx Cardiac Disorders: No - PULMONARY Hx Respiratory Disorders: No - NEUROLOGICAL Hx Neurological Disorder: No - HEENT Hx HEENT Problems: No - RENAL Hx Chronic Kidney Disease: No - ENDOCRINE/METABOLIC Hx Endocrine Disorders: No - HEMATOLOGICAL/ONCOLOGICAL Hx Blood Disorders: No - INTEGUMENTARY Hx Dermatological Problems: No - MUSCULOSKELETAL/RHEUMATOLOGICAL Hx Musculoskeletal Disorders: No Hx Falls: No - GASTROINTESTINAL Hx Gastrointestinal Disorders: No - GENITOURINARY/GYNECOLOGICAL Hx Genitourinary Disorders: No - PSYCHIATRIC Hx Psychophysiologic Disorder: No Hx Emotional Abuse: No Hx Physical Abuse: No Hx Substance Use: No - SURGICAL HISTORY Hx Surgeries: Yes Hx Cholecystectomy: Yes Other/Comment: lipoma removal - ANESTHESIA Hx Anesthesia: Yes Hx Anesthesia Reactions: No Hx Malignant Hyperthermia: No Has any member of the family had a problem w/ anesthesia?: No Meds Allergies/Adverse Reactions: Allergies Allergy/AdvReac Type Severity Reaction Status Date / Time No Known Allergies Allergy Verified 07/19/18 10:44 Physical Exam - Constitutional Appears: Well, Non-toxic - Head Exam Head Exam: ATRAUMATIC, NORMOCEPHALIC - Eye Exam Eye Exam: Normal appearance - ENT Exam ENT Exam: Mucous Membranes Moist - Respiratory Exam Respiratory Exam: NORMAL BREATHING PATTERN - Cardiovascular Exam Cardiovascular Exam: REGULAR RHYTHM, +S1 - Extremities Exam Additional comments: Left Lower Extremity Exam VASC: DP and PT 2/4, CFT less than 3 seconds X 5, no edema, no varicosities, TG WNL NEURO: epicritic and protective sensations intact DERM: no open lesions, no ecchymosis, no erythema, no clinical signs of infection ORTHO: pain with ankle range of motion, pain on palpation to the lateral anterior aspect of the ankle, no pain with any other ranges of motion MSK 5/5 Results - Vital Signs Recent Vital Signs: Last Vital Signs Temp 98.2 F 09/27/18 08:52 Pulse 80 09/27/18 08:52 Resp 18 09/27/18 08:52 BP 117/80 09/27/18 08:52 Pulse Ox 97 09/27/18 08:52 Assessment & Plan - Assessment and Plan (Free Text) Assessment: Patient seen and evaluated in [facility] for Left ankle ORIF Pt was seen and examined in [facility] Pt NPO status was confirmed All pre-op testing and clearance in chart Pt has exhausted all conservative treatment at this time and is opting for surgical intervention Pt was explained procedure and post-operative course All pt's questions were answered to satisfaction No guarantees were made Pt understands all risks, benefits and complications of procedure Pt will follow-up in podiatry clinic within 1 week of surgery
--- NOTE | 2018-09-27 09:07 | CP.SDSHP ---
Same Day Surgery H & P - History Proposed Procedure: left ankle ORIF with syndesmotic repair Pre-Op Diagnosis: left fibular fracture with syndesmosis tear - Previous Medical/Surgical History Previous Surgical History: gallbladder removal - Allergies Allergies: Allergies No Known Allergies Allergy (Verified 07/19/18 10:44) - Physical Exam Vital Signs: Vital Signs 09/27/18 09/27/18 08:52 08:59 Temperature 98.2 F Pulse Rate 80 80 Respiratory 18 Rate Blood Pressure 117/80 O2 Sat by Pulse 97 Oximetry - {Optional Preform as Required} Integument: Other Ortho: Other - Impression Impression: Pt was seen and examined in [facility]. Pt NPO status was confirmed. All pre-op testing and clearance in chart. Pt has exhausted all conservative treatment at this time and is opting for surgical intervention. Pt was explained procedure and post-operative course. All pt's questions were answered to satisfaction. No guarantees were made. Pt understands all risks, benefits and complications of procedure. Pt will follow-up in Podiatry clinic within 1 week of surgery Pt. Evaluated Today:Candidate for Anesthesia & Procedure: Yes Short Stay Discharge - Short Stay Discharge Admitting Diagnosis/Reason for Visit: S82.92XA Disposition: HOME/ ROUTINE Referrals: Tena Faustin MD [Primary Care Provider] - Follow-up: Podiatry clinic in 1 wek Additional Instructions (Diet, Activity): -Patient in good/stable condition for discharge home -Pt to resume medications per medical reconciliation -Resume regular diet -Please keep dressing clean, dry, & intact to surgical site -Use plastic bag over bandage for showering -Wear post op shoe at all times when ambulating -Call clinic if you see signs of infection (redness, swelling, malodor) -Please make an appointment to see Dr. Jarquin in podiatry clinic within 1 week for post-op check Progress Note/Discharge Note with Instructions: - Patient evaluated bedside in recovery s/pleft ankle ORIF - After surgical procedure patient in NAD - (+) Void, (+) Appetite - Capillary refill time <3s and NVS intact. - Patient denies complaints at this time. - Post operative instructions and plan of care explained to patient at length. - Patient. acknowledges verbal understanding. - Patient stable for DC per podiatric surgery
[2018-09-27] MEDS ORDERED: ceFAZolin 1 GM in Sodium Chloride 0.9% 100 ML IVPB ONE (09:08)
[2018-09-27] MEDS ORDERED: Sodium Chloride 0.9% 1,000 ML IV SCH (09:15)
[2018-09-27] MEDS ORDERED: Bupivacaine 0.5% Inj(30mL) ONE (09:23)
[2018-09-27] MEDS ORDERED: Dexamethasone 4 mg/1 ml ONE (10:23)
[2018-09-27] MEDS ORDERED: Desflurane Inhalation Anesthetic Liq (240 ml) ONE (12:03)
--- NOTE | 2018-09-27 12:23 | PCM.SURG1 ---
Surgeon's Initial Post Op Note - Surgeon's Notes Surgeon: Dr. Jarquin Driver [employer] Instructor: Cyndi Murray, Lorene Telles Type of Anesthesia: General LMA Anesthesia Administered By: Dr. Moss Pre-Operative Diagnosis: left ankle fibular fracture nonunion, left high sprain Operative Findings: see dictation. materials: tightrope, 3-0 prolene, 4-0 vicryl, 4 hole synthes distal fibular plate, (4) 2.7 screw, (1) 3.5 screw,. injectibles: 5 cc of .5% marcaine plain Post-Operative Diagnosis: same Operation Performed: ORIF of left fibular fracture with repair of syndesmosis Specimen/Specimens Removed: none Estimated Blood Loss: EBL {In ML}: 5 Blood Products Given: N/A Drains Used: No Drains Post-Op Condition: Good Date of Surgery/Procedure: 09/27/18 Time of Surgery/Procedure: 12:25
[2018-09-27] MEDS ORDERED: Oxycodone/Acetaminophen 5/325 mg Tab PO PRN ×2 (12:27)
[2018-09-27] MEDS ORDERED: HYDROmorphone 0.5 mg/0.5 ml ISec ONE (12:41)
--- NOTE | 2018-09-27 12:44 | PCM.ANESB2 ---
Popliteal Nerve Block - Popliteal Nerve Block Date of Procedure: 09/27/18 Anesthesiologist: Isa Pre-Procedure Diagnosis: Left ankle fracture Post-Procedure Diagnosis: Left ankle fracture Procedure Performed: Popliteal Nerve Block Left - Procedure Popliteal Nerve Block: This procedure was explained to the patient that it is for post-operative pain management. Consent was obtained after a thorough discussion with the patient regarding the benefits and possible complications of local anesthetic block of the sciatic nerve at the popliteal level. The patient was brought to the operating room and standard monitors are applied. Time-out was held with the circulating nurse to confirm the correct surgery and the appropriate block. After applying oxygen by nasal cannula and administering IV Sedation, patient's operative leg was gently raised and supported and the groove in between the biceps femoris and vastus lateralis muscles was carefully palpated. The skin approximately 8cm above the popliteal crease was then marked. The ultrasound transducer was then applied to the posterior thigh approximately 8cm above the popliteal crease in the transverse plane and the sciatic nerve before its division was visualized lateral to the popliteal artery and in between the bicep femoris and semimembranosus/semitendinosus muscles. After identification, the lateral portion of the thigh was prepped with Betadine solution three times and Lidocaine 1% was injected subcutaneously for topical anesthesia. At this point, a # 21 gauge Stimuplex insulated 4 inch needle was inserted into pre-marked area and advanced in a perpendicular direction. The needle was inserted above the ultrasound transducer in-plane towards the sciatic nerve in a [id number] direction. Needle advancement was performed carefully under direct ultrasound visualization. Nerve stimulator was used and dorsiflexion of the left foot was elicited at a current of 0.3 MA. After repeated negative aspiration, 20 cc of 0.5 % Ropivicaine. Under ultrasound guidance the local anesthetics were observed surrounding sciatic nerve . The needle was removed intact and sterile dressing was applied. The patient tolerated the popliteal nerve block well with stable vital signs and was subsequently prepared for the surgery.
[2018-09-27] MEDS: HYDROmorphone 0.5 mg/0.5 ml ISec IVP PRN ×2 (12:45→13:00)
[2018-09-27] MEDS ORDERED: Lactated Ringer's 1,000 ML IV SCH (12:45)
[2018-09-27 14:24] VITALS: PULSE 98; RESP 18
--- NOTE | 2018-09-27 14:46 | RAD ---
Date of service: 09/27/2018 PROCEDURE: Left Ankle Radiographs. HISTORY: s/p fibular ORIF COMPARISON: 06/04/2018 TECHNIQUE: 3 views obtained. FINDINGS: BONES: Status post open reduction internal fixation. Major fracture fragments are anatomically aligned. No evidence of orthopedic hardware failure. JOINTS: Normal. No osteoarthritis. Ankle mortise maintained. Talar dome intact SOFT TISSUES: Normal. OTHER FINDINGS: None. IMPRESSION: Satisfactory postoperative status.
[2018-09-27 15:18] VITALS: BP 142/78; TEMP 97.6; O2SAT 100
--- NOTE | 2018-09-27 16:55 | RAD ---
Date of service: 09/27/2018 PROCEDURE: Fluoroscopic assistance in excess of 1 hour. HISTORY: LEFT ANKLE COMPARISON: None TECHNIQUE: Standard protocol for this study/examination. FINDINGS: Total fluoroscopic time (continuous mode) utilized during the procedure 32.9 seconds. Total exam DLP: 0.87 (mGy). IMPRESSION: Submitted images from the current procedure: 7.0
--- NOTE | 2018-09-29 21:07 | OP ---
PROCEDURE DATE: 09/27/2018 PREOPERATIVE DIAGNOSES: 1. Chronic nonunion distal fibula fracture, left ankle. 2. High sprain of syndesmotic ligament, left ankle. POSTOPERATIVE DIAGNOSES: 1. Chronic nonunion distal fibula fracture, left ankle. 2. High sprain of syndesmotic ligament, left ankle. PROCEDURES PERFORMED: 1. Excision of nonunion of distal fibula with open reduction and internal fixation using plate and screw fixation, left ankle 2. Repair of syndesmotic ligament using suture button, left ankle SURGEON: Stephan Jarquin DPM. ASSISTANTS: Cyndi Murray DPM PGY-3; Lorene Salcedo DPM PGY-2; Nick Miller DPM PGY-2. TYPE OF ANESTHESIA: General with popliteal and local. ANESTHESIA ADMINISTERED BY: Dina Moss MD. INDICATION: The patient is a 33-year-old male who did suffer a fracture of his left fibula from falling down the stairs approximately 9 months ago. The patient had been treated conservatively at that time. The patient now complains of pain with walking to the distal lateral ankle, chronic in nature. The patient now requires surgical intervention. The patient signed the consent after careful explanation of all risks, benefits, complications, and alternatives for surgical procedures. No guarantees were given nor implied. The n.p.o. status was confirmed prior to bringing the patient to the operating room. The patient received 2 g of Ancef IV prior to the procedure. PREPARATION: The patient was brought to the operating room and placed in the operating room table in a supine position. After induction of IV sedation and general sedation, a well-padded pneumatic thigh tourniquet was placed to the patient's upper left thigh with plenty of cast padding. The left ankle and foot were then prepped in the normal sterile manner. Esmarch bandage was utilized to exsanguinate the patient's left ankle and the pneumatic thigh tourniquet was then inflated to 350 mmHg and the procedure begun. PROCEDURE #1: Excision of nonunion of distal fibula with open reduction and internal fixation using plate and screw fixation, left ankle Our attention was now directed to the distal-lateral aspect of the patient left ankle where the borders of the fibula were marked out at this time. Next an approximately 8 cm linear longitudinal incision was made overlying the lateral aspect of the fibula. Care was taken to avoid all vital neurovascular structures during dissection. All bleeders were cauterized as necessary. Next, a fresh blade was used to make a sharp linear incision through the capsule and periosteal tissues directly over the fibula. A rueda elevator was utilized to reflect the capsule and periosteal tissues medially and laterally, thus exposing the distal fibula into the operative field at this time. Next, the non-union site of the distal fibula was identified and did appear to have significant amounts of fibrous tissue and callous formation. Using a curette, the non-union site was now debrided of all fibrous tissue from the original fracture site which was oblique in nature. Next, an osteotome was utilized to deepen the fracture fragments anteriorly and posteriorly and a sagittal saw was utilized to complete the fracture through and through of the distal fibula. At this time, the surgical site was flushed with copious amounts of sterile normal saline solution to remove any remaining fibrous tissue and debris. Next, a side cutting leona was utilized to freshen and remodel the fracture fragment edges both distally and proximally, medially and laterally to allow for fresh healthy bleeding bone to be achieved. At this time, manual manipulation was placed to the ankle and distal fibula and a bone clamp was utilized to aid in the reduction of the fibula fracture fragment. Using intraoperative fluoroscopy, the alignment was now inspected with yarsani of fibula length achieved. Next a Synthes 4-hole LCP plate was chosen and then placed over the distal fibula at this time. Placement was checked with using intraoperative fluoroscopy. Next, using standard AO principles and techniques, two 3.5 Synthes cortical screws of various lengths were inserted across the fibula in the two oblong holes. It should be noted the more proximal 3.5 screw was placed in an eccentric position to allow for compression of the plate across the fracture fragment. Next, one 2.7 locking screw was placed at the next most proximal hole, and to the distal aspect of the plate, five 2.7 locking screws were inserted into the plate of various lengths purchasing only one cortex. Intraoperative fluoroscopy was utilized at this time in order to ensure proper placement of the plate and anatomical reduction of the fibula, which appeared excellent at this time. PROCEDURE #2: Repair of syndesmotic ligament using suture button, left ankle Our attention was now directed to the area of the oblong hole just distal to the most distal 3.5 cortical screw, and a K-wire from this side was then inserted from the lateral aspect of the fibula aiming towards the anterior medial aspect of the tibia approximately 30 degree orientation from the perpendicular aspect of the leg. The K-wire was the advanced in this orientation, using intraoperative fluoroscopy at this time to check placement, which appeared to be excellent and the K-wire was then advanced to the medial anterior aspect of the tibia. Next, using #15 blade, a small percutaneous incision was made in the skin just adjacent to the K-wire and the hemostat was utilized to advance the incision bluntly down to the level of the medial aspect of the tibia. Next, the 3.5 drill bit from the set was then placed at the medial incision just made over the K-wire and was drilled from medial to lateral from the tibia to the fibula to create the passage hole for the TightRope. The drill bit was then removed and slowly the K-wire was then advanced medially and then out of the tibia and the TightRope followed in this trajectory. The TightRope was then deployed under intraoperative fluoroscopy and the medial side was then flipped and placed adjacent to the medial aspect of the tibia. Using a hemostat, the lateral button of the TightRope was then advanced down to the level of the plate in the fibula bone. Next using alternating manual tightening on the two remaining sutures, the TightRope was then cinched down into the plate with excellent compression achieved across the syndesmosis ligament. The excess suture was then removed. The surgical sites were then flushed with copious amounts of sterile normal saline solution. The capsular and periosteal tissues reapproximated using a 2-0 Vicryl suture in a running interlocking suture technique. The subcutaneous tissue was reapproximated using 3-0 Vicryl and the skin edges were reapproximated using 4-0 Prolene. The incision on the medial side was also reapproximated using 4-0 Prolene. 5 cc of 0.5% marcaine plain was injected into the saphenous distribution of the ankle. The incision sites were then dressed with Betadine-soaked Adaptic, 4 x 4 gauze, Kerlix, and a well-padded posterior splint was placed to the patient's left lower extremity with plenty of Webril cast padding and the foot placed in a perpendicular fashion to the distal leg was then achieved. POSTOPERATIVE CONDITION: The patient tolerated the procedure well with no apparent complications or complaints. The patient was escorted from the OR to the recovery room with vital signs stable and neurovascular status intact to the patient's left lower extremity. The patient will be strictly nonweightbearing with the posterior splint and crutches. The patient will follow up with Dr. Jarquin in the Podiatry Clinic within 1 week. Cyndi Murray DPM [id number]
== END 2018-09-27 15:45 | disposition home or self-care (01) ==
LOC: H.OPSURG 08:36
PROVIDERS: ATTEND Podiatrist Foot & Ankle Surgery
DX: S82.92XA Unspecified fracture of left lower leg, initial encounter for closed fracture (principal); X58.XXXA Exposure to other specified factors, initial encounter; W10.9XXA Fall (on) (from) unspecified stairs and steps, initial encounter
CPT/HCPCS: 27695; 27792; 73610; 97161; C1713; C1769; G8978; G8979; G8980; J0690; J1100; J1170; J2001; J2250; J2405; J2704; J3010; J7120